=== PATIENT | female | born 1960 | race Caucasian/White ===

== ENCOUNTER 2019-11-13 06:00 | Outpatient (RCR) | payer MEDICARE, OTHER, SELFPAY | END 2019-12-07 23:59 | disposition home or self-care (01) | LOC: APT 06:00 | PROVIDERS: Family Provider Nurse Practitioner; PCP Nurse Practitioner; Referring Provider Psychiatry & Neurology Neurology; Visit Provider Psychiatry & Neurology Neurology | DX: G62.2 Polyneuropathy due to other toxic agents (principal) | CPT/HCPCS: 97110; 97112; 97116; 97163 ==

== ENCOUNTER → 2019-11-20 09:34 | Outpatient (BNVA) | payer MEDICARE, OTHER, SELFPAY | PROVIDERS: Family Provider Nurse Practitioner; PCP Nurse Practitioner; Visit Provider Podiatrist Foot & Ankle Surgery | DX: M79.672 Pain in left foot (principal) | CPT/HCPCS: 73620; 73630 ==

== ENCOUNTER → 2019-11-27 10:11 | Outpatient (BNVA) | payer MEDICARE, OTHER, SELFPAY | PROVIDERS: Family Provider Nurse Practitioner; PCP Nurse Practitioner; Visit Provider Nurse Practitioner | DX: F43.12 Post-traumatic stress disorder, chronic (principal); G47.10 Hypersomnia, unspecified; G47.33 Obstructive sleep apnea (adult) (pediatric) | CPT/HCPCS: 99214 ==

== ENCOUNTER → 2019-12-12 09:53 | Outpatient (BNVA) | payer MEDICARE, OTHER, SELFPAY | PROVIDERS: Family Provider Nurse Practitioner; PCP Nurse Practitioner; Visit Provider Internal Medicine Rheumatology | DX: M19.90 Unspecified osteoarthritis, unspecified site (principal); Z11.59 Encounter for screening for other viral diseases; Z79.899 Other long term (current) drug therapy; M79.7 Fibromyalgia | CPT/HCPCS: 99214 ==

== ENCOUNTER → 2019-12-13 08:13 | Outpatient (BNVA) | payer MEDICARE, OTHER, SELFPAY | PROVIDERS: Family Provider Nurse Practitioner; PCP Nurse Practitioner; Visit Provider Internal Medicine Rheumatology | DX: M19.90 Unspecified osteoarthritis, unspecified site (principal); Z11.59 Encounter for screening for other viral diseases; Z79.899 Other long term (current) drug therapy | CPT/HCPCS: 80076; 82565; 85025; 85651; 86140; 86704; 86803; 87340 ==

== ENCOUNTER 2019-12-17 11:30 | Outpatient (CLI) | payer MEDICARE, OTHER, SELFPAY ==
--- NOTE | 2019-12-17 11:38 | XR_ITS ---
WS: [id number] LEFT FOOT: 3 VIEW(S) TECHNIQUE: PA, oblique and lateral. HISTORY: inflammatory arthritis COMPARISON: 11/20/2019 Diffuse osteopenia. Carlton and screw fixation noted in the distal tibia. 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 Normal tarsal/metatarsal alignment. Mild narrowing of the first metatarsophalangeal joint. No erosions. Mild hammertoe deformities. Degen erative changes in the subtalar joint are probably posttraumatic. Partial fusion at the subtalar join t. XR/XR foot LT min 3V* [id number] IMPRESSION: 1. No erosion at the metatarsal heads. 2. Partial fusion across the subtalar joint.
--- NOTE | 2019-12-17 11:38 | XR_ITS ---
WS: [id number] LEFT HAND: 3 VIEW(S) TECHNIQUE: PA, oblique and lateral. HISTORY: inflammatory arthritis COMPARISON: None available. No acute fracture or dislocation. No soft tissue or bone abnormality. No metacarpal head erosions. No ulnar styloid erosion. No periarticular osteopenia. XR/XR hand LT min 3V* [id number] IMPRESSION: No evidence for inflammatory arthritis.
--- NOTE | 2019-12-17 11:38 | XR_ITS ---
WS: [id number] CHEST 2 VIEWS HISTORY: inflammatory arthritis COMPARISON: 09/21/2016 Lungs: Clear with no abnormality. No pleural effusion or pneumothorax. Cardiac size: Normal. Mediastinum/Aorta: Mild atherosclerosis aorta. Bones: Mild increase in thoracic kyphosis. Mild multilevel spondylitic changes. XR/XR chest 2V* [id number] IMPRESSION: 1. No acute cardiopulmonary disease. 2. Mild atherosclerosis aorta.
--- NOTE | 2019-12-17 11:38 | XR_ITS ---
WS: [id number] RIGHT HAND: 3 VIEW(S) TECHNIQUE: PA, oblique and lateral. HISTORY: inflammatory arthritis COMPARISON: None available. No acute fracture or dislocation. No soft tissue or bone abnormality. No metacarpal head erosions or ulnar styloid erosion. Lucency in the triquetrum may be a small erosio n or bone cyst. XR/XR hand RT min 3V* [id number] IMPRESSION: 1. Indeterminate for small erosion or cyst in the triquetrum. 2. Otherwise negative.
--- NOTE | 2019-12-17 11:38 | XR_ITS ---
WS: [id number] RIGHT FOOT: 3 VIEW(S) TECHNIQUE: PA, oblique and lateral. HISTORY: inflammatory arthritis COMPARISON: 11/20/2019 No acute fracture or dislocation. Mild narrowing of the first metatarsophalangeal joint. No definite erosion. There is a very tiny luce ncy along the lateral first metatarsal head. At this time cannot confirm erosion. No soft tissue abnormality or bone destruction. XR/XR foot RT min 3V* [id number] IMPRESSION: 1. Mild osteoarthritis at the first metatarsophalangeal joint. 2. Indeterminate for tiny erosion along the lateral, first metatarsal head.
== END 2019-12-17 11:31 | disposition home or self-care (01) ==
LOC: RADWPI 11:36
PROVIDERS: Family Provider Nurse Practitioner; PCP Nurse Practitioner; Visit Provider Internal Medicine Rheumatology
DX: M85.841 Other specified disorders of bone density and structure, right hand (principal); M19.071 Primary osteoarthritis, right ankle and foot; M85.871 Other specified disorders of bone density and structure, right ankle and foot; M24.675 Ankylosis, left foot; I70.0 Atherosclerosis of aorta
CPT/HCPCS: 71046; 73130; 73630

== ENCOUNTER 2020-01-04 13:40 | Outpatient (CLI) | payer MEDICARE, OTHER, SELFPAY ==
[2020-01-04 15:08] LABS: Hepatitis C Virus Antibody Reactive (Nonreactive)
== END 2020-01-04 13:41 | disposition home or self-care (01) ==
LOC: LAB 13:48
PROVIDERS: Family Provider Nurse Practitioner; PCP Nurse Practitioner; Visit Provider Internal Medicine Rheumatology
DX: L40.50 Arthropathic psoriasis, unspecified (principal); Z79.899 Other long term (current) drug therapy
CPT/HCPCS: 86803

== ENCOUNTER 2020-01-10 11:31 | Outpatient (CLI) | payer MEDICARE, OTHER, SELFPAY ==
[2020-01-10 12:11] LABS: Basophils % 0.5 %; Eosinophils # 0.2 10^3/uL (0.0-0.8); Eosinophils % 2.7 %; Hematocrit 39.3 % (37.0-47.0); Hemoglobin 12.4 g/dL (11.5-15.3); Lymphocytes # 1.3 10^3/uL (0.8-4.8); Lymphocytes % 23.3 %; Mean Corpuscular HGB Conc 31.6 g/dL (30.0-36.0); Mean Corpuscular Volume 91.8 fL (81-99); Mean Platelet Volume 10.2 fL (7.4-10.4); Monocytes # 0.6 10^3/uL (0.2-0.9); Monocytes % 9.9 %; Neutrophils # 3.5 10^3/uL (1.8-7.7); Neutrophils % 63.4 %; Nucleated Red Blood Cells % 0 %; Platelet Count 240 10^3/cmm (130-400); Red Blood Count 4.28 10^6/uL (4.1-5.3); Red Cell Distribution Width 12.8 % (12.1-15.1); White Blood Count 5.5 10^3/uL (4.0-10.0)
[2020-01-10 12:39] LABS: Alanine Aminotransferase 13 U/L (0-33); Albumin Level 4.4 g/dL (3.5-5.2); Alkaline Phosphatase 66 IU/L (35-105); Anion Gap 15.2 (5-19); Aspartate Amino Transferase 30 U/L (0-32); Blood Urea Nitrogen 18 mg/dL (6-20); Calcium 10.2 mg/dL (8.5-10.5); Carbon Dioxide 30 mmol/L (22-29); Chloride 99 mmol/L (98-107); Chol HDL Ratio 1.69 mg/dL (0.0-4.40); Cholesterol 145 mg/dL (0-200); Globulin 3.9 g/dL (1.3-4.6); Glomerular Filtration Rate 73.9 mL/min (90-130); Glucose 115 mg/dL (65-115); HDL Cholesterol 86 mg/dL (60-100); Iron 72 ug/dL (37-145); LDL Cholesterol Calculated 43 mg/dL (50-129); Magnesium 2.4 mg/dL (1.7-2.3); Percent Saturation 22.9 % (20-50); Phosphorus 4.1 mg/dL (2.5-4.5); Potassium 4.2 mmol/L (3.5-5.1); Sodium 140 mmol/L (136-145); Thyroid Stimulating Hormone 1.56 uIU/mL (0.27-4.20); Total Bilirubin 0.5 mg/dL (0.15-1.2); Total Iron Binding Capacity 314 mcg/dl; Total Protein 8.3 g/dL (6.6-8.7); Triglycerides 81 mg/dL (0-150); Unsaturated Iron Binding 242 ug/dL (112-347); Vitamin B12 1469 pg/mL (232-1245)
[2020-01-10 12:41] LABS: Calcium 10.1 mg/dL (8.5-10.5); Parathyroid Hormone 52.6 pg/mL (15-65)
[2020-01-10 12:49] LABS: Folate Level 18.7 ng/mL (4.8-37.3)
[2020-01-10 12:59] LABS: Estmated Average Glucose 111; Hemoglobin A1C 5.5 % (4.0-6.0)
== END 2020-01-10 11:32 | disposition home or self-care (01) ==
LOC: LAB 11:40
PROVIDERS: Family Provider Nurse Practitioner; PCP Nurse Practitioner; Visit Provider Surgery
DX: E66.9 Obesity, unspecified (principal); I10 Essential (primary) hypertension; E11.9 Type 2 diabetes mellitus without complications; K21.9 Gastro-esophageal reflux disease without esophagitis; L40.50 Arthropathic psoriasis, unspecified; Z79.899 Other long term (current) drug therapy; Z79.82 Long term (current) use of aspirin
CPT/HCPCS: 80053; 80061; 82310; 82607; 82746; 83036; 83540; 83550; 83735; 83970; 84100; 84443; 85025

== ENCOUNTER 2020-01-17 11:24 | Outpatient (CLI) | payer MEDICARE, OTHER, SELFPAY ==
[2020-01-17 12:24] LABS: Iron 124 ug/dL (37-145)
[2020-01-22 11:01] LABS: Vitamin B1(Thiamin) Plas/Ser 57 nmol/L (8-30)
[2020-01-22 20:06] LABS: Zinc Level, Serum or Plasma 76 mcg/dL (60-130)
[2020-01-23 09:41] LABS: Vit D 1,25 (Oh)2, Total 69 pg/mL (18-72); Vit D2 1,25 (Oh)2 <8 pg/mL; Vit D3 1,25 (Oh)2 69 pg/mL
== END 2020-01-17 11:25 | disposition home or self-care (01) ==
LOC: LAB 11:29
PROVIDERS: Family Provider Nurse Practitioner; PCP Nurse Practitioner; Visit Provider Surgery
DX: E66.9 Obesity, unspecified (principal); E55.9 Vitamin D deficiency, unspecified; E11.9 Type 2 diabetes mellitus without complications
CPT/HCPCS: 36415; 82652; 83540; 84425; 84630

== ENCOUNTER → 2020-01-22 09:35 | Outpatient (BNVA) | payer MEDICARE, OTHER, SELFPAY | PROVIDERS: Family Provider Nurse Practitioner; PCP Nurse Practitioner; Visit Provider Nurse Practitioner | DX: F43.12 Post-traumatic stress disorder, chronic (principal); G47.10 Hypersomnia, unspecified | CPT/HCPCS: 99214 ==

== ENCOUNTER → 2020-02-05 10:28 | Outpatient (BNVA) | payer MEDICARE, OTHER, SELFPAY | PROVIDERS: Family Provider Nurse Practitioner; PCP Nurse Practitioner; Visit Provider Nurse Practitioner | DX: E11.9 Type 2 diabetes mellitus without complications (principal); I10 Essential (primary) hypertension; E78.2 Mixed hyperlipidemia | CPT/HCPCS: 81000; 82044; 83036 ==

== ENCOUNTER 2020-03-20 10:02 | Outpatient (CLI) | payer MEDICARE, OTHER, SELFPAY ==
--- NOTE | 2020-03-20 09:30 | US_ITS ---
WS: [id number] RIGHT UPPER QUADRANT ULTRASOUND HISTORY: Hepatitis C COMPARISON: 03/10/2015 Liver: 17.7 cm in length. Liver is normal size. The surface of the liver is very slightly irregular a nd nodular. No mass or bile duct dilatation. Gallbladder: Prior cholecystectomy. CBD: 0.4 cm Pancreas: Normal size and echogenicity. Right kidney: 9.9 cm in length. Normal echogenicity with no mass or hydronephrosis. Aorta and IVC: Unremarkable. No ascites. US/US liver [id number] IMPRESSION: 1. Prior cholecystectomy. 2. Minimal surface changes involving the liver of cirrhosis.
[2020-03-21 15:11] LABS: HEP C RNA Viral Load Quant <1.18 NOT DETECTED Log IU/mL (NOT DETECTED); HEP C RNA Viral Load Quant <15 NOT DETECTED IU/mL (NOT DETECTED)
== END 2020-03-20 10:03 | disposition home or self-care (01) ==
LOC: RAD 10:03
PROVIDERS: PCP Nurse Practitioner; Visit Provider Nurse Practitioner Family
DX: R76.8 Other specified abnormal immunological findings in serum (principal); B19.20 Unspecified viral hepatitis C without hepatic coma
CPT/HCPCS: 76705; 87522

== ENCOUNTER → 2020-03-25 07:48 | Outpatient (BNVA) | payer MEDICARE, OTHER, SELFPAY | PROVIDERS: PCP Nurse Practitioner; Visit Provider Nurse Practitioner | DX: F43.12 Post-traumatic stress disorder, chronic (principal) | CPT/HCPCS: 99214 ==

== ENCOUNTER → 2020-05-06 07:18 | Outpatient (BNVA) | payer MEDICARE, OTHER, SELFPAY | PROVIDERS: PCP Nurse Practitioner; Visit Provider Nurse Practitioner | DX: F43.12 Post-traumatic stress disorder, chronic (principal); F41.1 Generalized anxiety disorder | CPT/HCPCS: 99213 ==

== ENCOUNTER → 2020-06-30 12:43 | Outpatient (BNVA) | payer MEDICARE, OTHER, SELFPAY | PROVIDERS: PCP Nurse Practitioner; Visit Provider Internal Medicine Rheumatology | DX: L40.50 Arthropathic psoriasis, unspecified (principal); Z79.899 Other long term (current) drug therapy; M79.7 Fibromyalgia; M19.041 Primary osteoarthritis, right hand; M19.042 Primary osteoarthritis, left hand; R76.8 Other specified abnormal immunological findings in serum | CPT/HCPCS: 36415; 80076; 82565; 85025; 85651; 86140; 99214 ==

== ENCOUNTER → 2020-07-07 08:01 | Outpatient (BNVA) | payer MEDICARE, OTHER, SELFPAY | PROVIDERS: PCP Nurse Practitioner; Visit Provider Nurse Practitioner | DX: F43.12 Post-traumatic stress disorder, chronic (principal) | CPT/HCPCS: 99213 ==

== ENCOUNTER → 2020-07-11 08:14 | Outpatient (BNVA) | payer MEDICARE, OTHER, SELFPAY | PROVIDERS: PCP Nurse Practitioner; Visit Provider Nurse Practitioner | DX: E11.9 Type 2 diabetes mellitus without complications (principal); E55.9 Vitamin D deficiency, unspecified; E78.2 Mixed hyperlipidemia; I10 Essential (primary) hypertension; Z79.899 Other long term (current) drug therapy | CPT/HCPCS: 80053; 80061; 81003; 82043; 82306; 83036; 87077; 87086; 87184; 87186 ==

== ENCOUNTER 2020-08-27 06:00 | Outpatient (RCR) | payer MEDICARE, OTHER, SELFPAY | END 2020-09-06 23:59 | disposition home or self-care (01) | LOC: APT 06:00 | PROVIDERS: PCP Nurse Practitioner; Referring Provider Internal Medicine Cardiovascular Disease; Visit Provider Internal Medicine Cardiovascular Disease | DX: F41.9 Anxiety disorder, unspecified (principal); F43.12 Post-traumatic stress disorder, chronic; M50.30 Other cervical disc degeneration, unspecified cervical region; Z98.1 Arthrodesis status; R29.6 Repeated falls | CPT/HCPCS: 97110; 97163; 99213 ==

== ENCOUNTER 2020-09-07 06:00 | Outpatient (RCR) | payer MEDICARE, OTHER, SELFPAY | END 2020-10-06 23:59 | disposition home or self-care (01) | LOC: APT 06:00 | PROVIDERS: PCP Nurse Practitioner; Referring Provider Internal Medicine Cardiovascular Disease; Visit Provider Internal Medicine Cardiovascular Disease | DX: M50.30 Other cervical disc degeneration, unspecified cervical region (principal); Z98.1 Arthrodesis status; R29.6 Repeated falls | CPT/HCPCS: 97110; 97112; 97163 ==

== ENCOUNTER 2020-10-07 06:00 | Outpatient (RCR) | payer MEDICARE, OTHER, SELFPAY | END 2020-11-06 23:59 | disposition home or self-care (01) | LOC: APT 06:00 | PROVIDERS: PCP Nurse Practitioner; Referring Provider Internal Medicine Cardiovascular Disease; Visit Provider Internal Medicine Cardiovascular Disease | DX: M50.30 Other cervical disc degeneration, unspecified cervical region (principal); Z98.1 Arthrodesis status; R29.6 Repeated falls | CPT/HCPCS: 97110; 97112; 97530 ==

== ENCOUNTER → 2020-10-09 08:31 | Outpatient (BNVA) | payer MEDICARE, OTHER, SELFPAY | PROVIDERS: PCP Nurse Practitioner; Visit Provider Nurse Practitioner | DX: F41.9 Anxiety disorder, unspecified (principal); F43.12 Post-traumatic stress disorder, chronic | CPT/HCPCS: 99213 ==

== ENCOUNTER → 2020-10-14 09:50 | Outpatient (BNVA) | payer MEDICARE, OTHER, SELFPAY | PROVIDERS: PCP Nurse Practitioner; Visit Provider Nurse Practitioner | DX: E11.9 Type 2 diabetes mellitus without complications (principal); E55.9 Vitamin D deficiency, unspecified; I10 Essential (primary) hypertension | CPT/HCPCS: 80053; 80061; 82306; 83036; 85025 ==

== ENCOUNTER → 2020-10-20 10:31 | Outpatient (BNVA) | payer MEDICARE, OTHER, SELFPAY | PROVIDERS: PCP Nurse Practitioner; Visit Provider Internal Medicine Rheumatology | DX: L40.50 Arthropathic psoriasis, unspecified (principal); M19.041 Primary osteoarthritis, right hand; M19.042 Primary osteoarthritis, left hand; Z79.899 Other long term (current) drug therapy; M79.7 Fibromyalgia; E11.42 Type 2 diabetes mellitus with diabetic polyneuropathy; F43.12 Post-traumatic stress disorder, chronic; F41.9 Anxiety disorder, unspecified; Z85.048 Personal history of other malignant neoplasm of rectum, rectosigmoid junction, and anus; Z87.891 Personal history of nicotine dependence | CPT/HCPCS: 99214 ==

== ENCOUNTER 2020-11-07 06:00 | Outpatient (RCR) | payer MEDICARE, OTHER, SELFPAY | END 2020-12-07 23:59 | disposition home or self-care (01) | LOC: APT 06:00 | PROVIDERS: PCP Nurse Practitioner; Referring Provider Internal Medicine Cardiovascular Disease; Visit Provider Internal Medicine Cardiovascular Disease | DX: M50.30 Other cervical disc degeneration, unspecified cervical region (principal); Z98.1 Arthrodesis status; R29.6 Repeated falls | CPT/HCPCS: 97110 ==

== ENCOUNTER → 2020-12-01 09:40 | Outpatient (BNVA) | payer MEDICARE, OTHER, SELFPAY | PROVIDERS: PCP Nurse Practitioner; Visit Provider Nurse Practitioner | DX: E11.9 Type 2 diabetes mellitus without complications (principal) | CPT/HCPCS: 81003; 87086 ==

== ENCOUNTER → 2020-12-17 07:42 | Outpatient (BNVA) | payer MEDICARE, OTHER, SELFPAY | PROVIDERS: PCP Nurse Practitioner; Visit Provider Nurse Practitioner | DX: F43.12 Post-traumatic stress disorder, chronic (principal) | CPT/HCPCS: 99214 ==

== ENCOUNTER 2021-01-13 10:56 | Outpatient (CLI) | payer MEDICARE, OTHER, SELFPAY ==
--- NOTE | 2021-01-13 11:00 | MM_ITS ---
WS: [id number] BILATERAL DIGITAL SCREENING MAMMOGRAPHY WITH CAD CLINICAL INFORMATION: Z12.39 - Encounter for other screening for malignant neoplasm of breast HISTORY: Screening mammogram. No current complaints. COMPARISON: 015 TECHNIQUE: Bilateral CC and MLO views. FINDINGS: The breasts are composed of heterogeneous fibroglandular density tissue, which can limit the detectio n of small underlying mass lesions. No suspicious mass, asymmetry, calcifications, or architectural d istortion. No evidence of malignancy. A few incidental punctate calcifications. Vascular calcificatio ns. MM/[place] [id number] IMPRESSION: BI-RADS: 2-Benign FOLLOW UP: 1 Year Follow-up Recommend return to annual screening mammography.
== END 2021-01-13 10:57 | disposition home or self-care (01) ==
LOC: RADSHAW 10:59
PROVIDERS: PCP Nurse Practitioner; Visit Provider Nurse Practitioner
DX: Z12.31 Encounter for screening mammogram for malignant neoplasm of breast (principal)
CPT/HCPCS: 77067

== ENCOUNTER → 2021-01-22 16:24 | Outpatient (BNVA) | payer MEDICARE, OTHER, SELFPAY | PROVIDERS: PCP Nurse Practitioner; Visit Provider Nurse Practitioner Family | DX: R39.11 Hesitancy of micturition (principal) | CPT/HCPCS: 81003; 87086 ==

== ENCOUNTER → 2021-02-09 15:14 | Outpatient (BNVA) | payer MEDICARE, OTHER, SELFPAY | PROVIDERS: PCP Nurse Practitioner; Visit Provider Nurse Practitioner | DX: E11.9 Type 2 diabetes mellitus without complications (principal) | CPT/HCPCS: 81000 ==

== ENCOUNTER → 2021-02-17 15:18 | Outpatient (BNVA) | payer MEDICARE, OTHER, SELFPAY | PROVIDERS: PCP Nurse Practitioner; Visit Provider Urology | DX: N39.9 Disorder of urinary system, unspecified (principal); R39.11 Hesitancy of micturition; N39.46 Mixed incontinence | CPT/HCPCS: 81003 ==

== ENCOUNTER → 2021-02-26 09:32 | Outpatient (BNVA) | payer MEDICARE, OTHER, SELFPAY | PROVIDERS: PCP Nurse Practitioner; Visit Provider Nurse Practitioner | DX: F41.9 Anxiety disorder, unspecified (principal); F43.12 Post-traumatic stress disorder, chronic; G47.10 Hypersomnia, unspecified | CPT/HCPCS: 99214 ==

== ENCOUNTER 2021-02-26 11:56 | Outpatient (CLI) | payer MEDICARE, OTHER, SELFPAY ==
[2021-02-26 13:04] LABS: Basophils % 0.7 %; Eosinophils # 0.1 10^3/uL (0.0-0.8); Eosinophils % 2.2 %; Hemoglobin 13.2 g/dL (11.5-15.3); Lymphocytes # 1.4 10^3/uL (0.8-4.8); Lymphocytes % 25.3 %; Mean Corpuscular HGB Conc 31.4 g/dL (30.0-36.0); Mean Corpuscular Hemoglobin 29.2 pg (28.0-34.0); Mean Corpuscular Volume 92.9 fL (81-99); Mean Platelet Volume 10.3 fL (7.4-10.4); Monocytes # 0.5 10^3/uL (0.2-0.9); Monocytes % 8.7 %; Neutrophils # 3.45 10^3/uL (1.8-7.7); Neutrophils % 62.7 %; Nucleated Red Blood Cells % 0 %; Platelet Count 259 10^3/cmm (130-400); Red Blood Count 4.52 10^6/uL (4.1-5.3); White Blood Count 5.5 10^3/uL (4.0-10.0)
[2021-02-26 13:23] LABS: INR 0.99 (0.8-1.2)
[2021-02-26 13:32] LABS: Calcium 9.6 mg/dL (8.5-10.5); Parathyroid Hormone 44.7 pg/mL (15-65)
[2021-02-26 13:45] LABS: Alanine Aminotransferase 11 U/L (0-33); Albumin Level 4.8 g/dL (3.5-5.2); Alkaline Phosphatase 79 IU/L (35-105); Aspartate Amino Transferase 23 U/L (0-32); Blood Urea Nitrogen 9 mg/dL (6-20); C Reactive Protein 7.4 mg/L (0.0-4.9); Calcium 9.5 mg/dL (8.5-10.5); Carbon Dioxide 31 mmol/L (22-29); Chloride 104 mmol/L (98-107); Chol HDL Ratio 1.93 mg/dL (0.0-4.40); Cholesterol 191 mg/dL (0-200); Globulin 2.8 g/dL (1.3-4.6); Glomerular Filtration Rate 85.9 mL/min (90-130); Glucose 122 mg/dL (65-115); HDL Cholesterol 99 mg/dL (60-100); Iron 72 ug/dL (37-145); LDL Cholesterol Calculated 59 mg/dL (50-129); Magnesium 2.2 mg/dL (1.7-2.3); Osmolality Calculated 296 mOsm/kg (285-295); Phosphorus 3.7 mg/dL (2.5-4.5); Sodium 143 mmol/L (136-145); Total Bilirubin 0.4 mg/dL (0.15-1.2); Total Iron Binding Capacity 326 mcg/dl; Total Protein 7.6 g/dL (6.6-8.7); Triglycerides 167 mg/dL (0-150); Unsaturated Iron Binding 254 ug/dL (112-347)
[2021-02-26 13:46] LABS: Erythrocyte Sedimentation Rate 29 mm/hr (0-15)
[2021-02-26 13:54] LABS: Vitamin B12 > 2000 pg/mL (232-1245)
[2021-02-26 14:23] LABS: Folate Level > 20.0 ng/mL (4.8-37.3)
[2021-03-02 12:53] LABS: Vitamin B1(Thiamin) Plas/Ser 114 nmol/L (8-30)
[2021-03-03 21:13] LABS: Zinc Level, Serum or Plasma 84 mcg/dL (60-130)
[2021-03-09 16:02] LABS: Vit D 1,25 (Oh)2, Total 83 pg/mL (18-72); Vit D2 1,25 (Oh)2 <8 pg/mL; Vit D3 1,25 (Oh)2 83 pg/mL
== END 2021-02-26 11:57 | disposition home or self-care (01) ==
LOC: LAB 12:09
PROVIDERS: Internal Medicine Rheumatology; PCP Nurse Practitioner; Visit Provider Surgery
DX: E66.9 Obesity, unspecified (principal); Z79.899 Other long term (current) drug therapy; E66.01 Morbid (severe) obesity due to excess calories; K21.9 Gastro-esophageal reflux disease without esophagitis; Z98.84 Bariatric surgery status; E88.81 Metabolic syndrome and other insulin resistance
CPT/HCPCS: 36415; 80053; 80061; 82248; 82310; 82607; 82652; 82746; 83540; 83550; 83735; 83970; 84100; 84425; 84443; 84630; 85025; 85610; 85651; 86140

== ENCOUNTER → 2021-03-18 11:15 | Outpatient (BNVA) | payer MEDICARE, OTHER, SELFPAY | PROVIDERS: PCP Nurse Practitioner; Visit Provider Urology | DX: N39.46 Mixed incontinence (principal); R39.11 Hesitancy of micturition; R30.0 Dysuria | CPT/HCPCS: 81003; 87077; 87086; 87184 ==

== ENCOUNTER → 2021-04-15 11:20 | Outpatient (BNVA) | payer MEDICARE, OTHER, SELFPAY | PROVIDERS: PCP Nurse Practitioner; Visit Provider Urology | DX: R30.0 Dysuria (principal); R33.9 Retention of urine, unspecified; N39.46 Mixed incontinence; R39.11 Hesitancy of micturition | CPT/HCPCS: 81003 ==

== ENCOUNTER → 2021-05-13 10:37 | Outpatient (BNVA) | payer MEDICARE, OTHER, SELFPAY | PROVIDERS: PCP Nurse Practitioner; Visit Provider Internal Medicine Rheumatology | DX: L40.50 Arthropathic psoriasis, unspecified (principal); M19.041 Primary osteoarthritis, right hand; M19.042 Primary osteoarthritis, left hand; Z71.89 Other specified counseling; Z79.899 Other long term (current) drug therapy; R76.8 Other specified abnormal immunological findings in serum; E11.9 Type 2 diabetes mellitus without complications; I10 Essential (primary) hypertension; E55.9 Vitamin D deficiency, unspecified | CPT/HCPCS: 80076; 82565; 85025; 86140 ==

== ENCOUNTER → 2021-05-14 13:58 | Outpatient (BNVA) | payer MEDICARE, OTHER, SELFPAY | PROVIDERS: PCP Nurse Practitioner; Visit Provider Nurse Practitioner | DX: F41.9 Anxiety disorder, unspecified (principal); F43.12 Post-traumatic stress disorder, chronic; G47.10 Hypersomnia, unspecified | CPT/HCPCS: 99214 ==

== ENCOUNTER → 2021-05-20 14:58 | Outpatient (BNVA) | payer MEDICARE, OTHER, SELFPAY | PROVIDERS: PCP Nurse Practitioner; Visit Provider Internal Medicine Rheumatology | DX: L40.50 Arthropathic psoriasis, unspecified (principal); M79.7 Fibromyalgia; Z79.899 Other long term (current) drug therapy; E11.42 Type 2 diabetes mellitus with diabetic polyneuropathy; K75.81 Nonalcoholic steatohepatitis (NASH); M15.9 Polyosteoarthritis, unspecified; K21.9 Gastro-esophageal reflux disease without esophagitis; Z85.048 Personal history of other malignant neoplasm of rectum, rectosigmoid junction, and anus; Z92.3 Personal history of irradiation; Z92.21 Personal history of antineoplastic chemotherapy; Z87.891 Personal history of nicotine dependence | CPT/HCPCS: 99214 ==

== ENCOUNTER → 2021-06-11 15:59 | Outpatient (BNVA) | payer MEDICARE, OTHER, SELFPAY | PROVIDERS: PCP Nurse Practitioner; Visit Provider Nurse Practitioner Family | DX: R33.9 Retention of urine, unspecified (principal); N39.0 Urinary tract infection, site not specified | CPT/HCPCS: 81003; 87077; 87086; 87184 ==

== ENCOUNTER → 2021-07-10 09:35 | Outpatient (BNVA) | payer MEDICARE, OTHER, SELFPAY | PROVIDERS: PCP Nurse Practitioner; Visit Provider Nurse Practitioner | DX: F43.12 Post-traumatic stress disorder, chronic (principal); G47.10 Hypersomnia, unspecified | CPT/HCPCS: 99214 ==

== ENCOUNTER → 2021-08-11 09:18 | Outpatient (BNVA) | payer MEDICARE, OTHER, SELFPAY | PROVIDERS: PCP Nurse Practitioner; Visit Provider Internal Medicine Rheumatology | DX: L40.50 Arthropathic psoriasis, unspecified (principal); M79.7 Fibromyalgia; Z71.89 Other specified counseling; Z79.899 Other long term (current) drug therapy | CPT/HCPCS: 80076; 82565; 85025; 86140 ==

== ENCOUNTER → 2021-08-12 15:10 | Outpatient (BNVA) | payer MEDICARE, OTHER, SELFPAY | PROVIDERS: PCP Nurse Practitioner; Visit Provider Internal Medicine Rheumatology | DX: L40.50 Arthropathic psoriasis, unspecified (principal); Z79.899 Other long term (current) drug therapy; M19.041 Primary osteoarthritis, right hand; M19.042 Primary osteoarthritis, left hand; M79.7 Fibromyalgia; K21.9 Gastro-esophageal reflux disease without esophagitis; K22.70 Barrett's esophagus without dysplasia; Z71.89 Other specified counseling; Z87.891 Personal history of nicotine dependence | CPT/HCPCS: 99214 ==

== ENCOUNTER → 2021-08-25 09:23 | Outpatient (BNVA) | payer MEDICARE, OTHER, SELFPAY | PROVIDERS: PCP Nurse Practitioner; Visit Provider Nurse Practitioner | DX: E11.9 Type 2 diabetes mellitus without complications (principal) | CPT/HCPCS: 80053; 80061; 82043 ==

== ENCOUNTER → 2021-10-07 10:05 | Outpatient (BNVA) | payer MEDICARE, OTHER, SELFPAY | PROVIDERS: PCP Nurse Practitioner; Visit Provider Nurse Practitioner | DX: F43.12 Post-traumatic stress disorder, chronic (principal); F41.9 Anxiety disorder, unspecified; G47.10 Hypersomnia, unspecified | CPT/HCPCS: 99214 ==

== ENCOUNTER → 2021-10-15 15:33 | Outpatient (BNVA) | payer MEDICARE, OTHER, SELFPAY | PROVIDERS: PCP Nurse Practitioner; Visit Provider Nurse Practitioner Family | DX: S61.259A Open bite of unspecified finger without damage to nail, initial encounter (principal); L08.9 Local infection of the skin and subcutaneous tissue, unspecified; W54.0XXA Bitten by dog, initial encounter | CPT/HCPCS: 73130; 81003 ==

== ENCOUNTER → 2021-11-03 00:01 | Outpatient (BNVA) | payer MEDICARE, OTHER, SELFPAY | PROVIDERS: PCP Nurse Practitioner; Visit Provider Internal Medicine | DX: K21.9 Gastro-esophageal reflux disease without esophagitis (principal) | CPT/HCPCS: 87635 ==

== ENCOUNTER 2021-11-09 06:26 | Day surgery (SDC) | payer MEDICARE, OTHER, SELFPAY ==
[2021-11-03 10:24] VITALS: BMI 30.9
[2021-11-09 06:41] VITALS: BP 124/74; PULSE 72; RESP 18; TEMP 36.8; O2SAT 98
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
[2021-11-09] MEDS: sodium chloride 0.9% 1,000 ML 30 ML IV (06:58)
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
[2021-11-09 07:48] VITALS: BP 99/63; PULSE 73; RESP 16; TEMP 36.3; O2SAT 99
[2021-11-09 08:05] VITALS: BP 114/79; PULSE 77; RESP 18; O2SAT 96
--- NOTE | 2021-11-09 11:09 | ANE.PACU2 ---
Inpatient post-anesthesia follow up: Airway intact: Yes Vital signs: Temperature 97.4 F Pulse Rate 77 Respiratory Rate 18 Blood Pressure 114/79 Pulse Oximetry 96 Oxygen Delivery Me thod Room Air Oxygen Flow Rate 3 Fraction of Inspir ed Oxygen Hydration adequate: No Nausea and vomiting: No Pain level: 1 Mental status: Baseline Additional Comments: EMR review
== END 2021-11-09 08:25 | disposition home or self-care (01) ==
PROVIDERS: PCP Nurse Practitioner; Visit Provider Internal Medicine
PROC: 0DJD8ZZ Inspection of Lower Intestinal Tract, Via Natural or Artificial Opening Endoscopic (ICD-10-PCS; CPT 45378; principal; 2021-11-09 07:00)
DX: Z12.11 Encounter for screening for malignant neoplasm of colon (principal); Z85.048 Personal history of other malignant neoplasm of rectum, rectosigmoid junction, and anus; K57.30 Diverticulosis of large intestine without perforation or abscess without bleeding; F41.9 Anxiety disorder, unspecified; K21.9 Gastro-esophageal reflux disease without esophagitis; I10 Essential (primary) hypertension; M79.7 Fibromyalgia; M15.9 Polyosteoarthritis, unspecified; E11.9 Type 2 diabetes mellitus without complications
CPT/HCPCS: 45378; 96360; J2704; J7030

== ENCOUNTER → 2021-12-15 13:21 | Outpatient (BNVA) | payer MEDICARE, OTHER, SELFPAY | PROVIDERS: PCP Nurse Practitioner; Visit Provider Internal Medicine Rheumatology | DX: L40.50 Arthropathic psoriasis, unspecified (principal); M19.041 Primary osteoarthritis, right hand; M19.042 Primary osteoarthritis, left hand; E11.42 Type 2 diabetes mellitus with diabetic polyneuropathy; K31.84 Gastroparesis; Z79.899 Other long term (current) drug therapy; K21.9 Gastro-esophageal reflux disease without esophagitis; M79.7 Fibromyalgia; Z92.21 Personal history of antineoplastic chemotherapy; Z85.048 Personal history of other malignant neoplasm of rectum, rectosigmoid junction, and anus; Z98.84 Bariatric surgery status; Z71.89 Other specified counseling | CPT/HCPCS: 99214 ==

== ENCOUNTER → 2021-12-21 08:59 | Outpatient (BNVA) | payer MEDICARE, OTHER, SELFPAY | PROVIDERS: PCP Nurse Practitioner; Visit Provider Internal Medicine Rheumatology | DX: L40.50 Arthropathic psoriasis, unspecified (principal); Z79.899 Other long term (current) drug therapy; M19.041 Primary osteoarthritis, right hand; M19.042 Primary osteoarthritis, left hand; E11.9 Type 2 diabetes mellitus without complications; E55.9 Vitamin D deficiency, unspecified | CPT/HCPCS: 80048; 80076; 82306; 82565; 83036; 85025; 86140 ==

== ENCOUNTER → 2021-12-30 09:35 | Outpatient (BNVA) | payer MEDICARE, OTHER, SELFPAY | PROVIDERS: PCP Nurse Practitioner; Visit Provider Nurse Practitioner | DX: F43.12 Post-traumatic stress disorder, chronic (principal); G47.10 Hypersomnia, unspecified | CPT/HCPCS: 99214 ==

== ENCOUNTER → 2022-03-24 09:43 | Outpatient (BNVA) | payer MEDICARE, OTHER, SELFPAY | PROVIDERS: PCP Nurse Practitioner; Visit Provider Nurse Practitioner | DX: F43.12 Post-traumatic stress disorder, chronic (principal); G47.10 Hypersomnia, unspecified | CPT/HCPCS: 99214 ==

== ENCOUNTER 2022-04-21 14:58 | Outpatient (CLI) | payer MEDICARE, OTHER, SELFPAY ==
--- NOTE | 2022-04-21 15:00 | USCV_ITS ---
Boogie He Age: 61 Gender: F : 1960 Exam Date: 04/21/2022 15:11 Ordering Phys: Bentley Moss Technologist: BELLA Exam Location: [facility] [place] Indication: RLE PAIN AND SWELLNG HISTORY: Lower extremity swelling. Lower extremity pain. PROCEDURES: Venous duplex imaging was performed in only the right lower extremity. The following venous structures were evaluated: common femoral vein, profunda vein, proximal portion of the greater saphenous vein, superficial femoral vein, and the popliteal vein. In addition, the posterior tibial and peroneal trunk were evaluated. Serial compression, augmentation maneuvers, and spectral Doppler flow evaluation were performed. FINDINGS: Normal 2-D Doppler and augmentation and compressibility throughout the lower extremity venous structures. Additional imaging through the proximal calf veins also reveals no thrombus. Limited evaluation of the greater saphenous vein is patent with no thrombus. CONCLUSIONS No DVT right lower extremity. Dr. Rose Judge DO (Electronically Signed) Final Date: 22 April 2022 07:38 S
== END 2022-04-21 14:59 | disposition home or self-care (01) ==
LOC: RAD 15:02
PROVIDERS: PCP Nurse Practitioner; Visit Provider Nurse Practitioner
DX: M79.661 Pain in right lower leg (principal); M79.89 Other specified soft tissue disorders
CPT/HCPCS: 93971

== ENCOUNTER → 2022-06-28 10:40 | Outpatient (BNVA) | payer MEDICARE, OTHER, SELFPAY | PROVIDERS: PCP Nurse Practitioner; Visit Provider Internal Medicine Rheumatology | DX: L40.50 Arthropathic psoriasis, unspecified (principal); Z79.899 Other long term (current) drug therapy; M19.041 Primary osteoarthritis, right hand; M19.042 Primary osteoarthritis, left hand; M79.7 Fibromyalgia; Z71.89 Other specified counseling; E11.43 Type 2 diabetes mellitus with diabetic autonomic (poly)neuropathy; K31.84 Gastroparesis; K21.9 Gastro-esophageal reflux disease without esophagitis; Z92.3 Personal history of irradiation; Z92.21 Personal history of antineoplastic chemotherapy; Z85.048 Personal history of other malignant neoplasm of rectum, rectosigmoid junction, and anus; K75.81 Nonalcoholic steatohepatitis (NASH) | CPT/HCPCS: 36415; 80076; 82565; 85025; 86140; 99214 ==

== ENCOUNTER 2022-07-08 21:25 | Emergency (ER) | payer MEDICARE, OTHER, SELFPAY ==
[2022-07-08 21:35] VITALS: BP 128/67; PULSE 81; RESP 16; TEMP 36.7; O2SAT 96
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
== END 2022-07-08 22:53 | disposition home or self-care (01) ==
PROVIDERS: Emergency Provider Nurse Practitioner Family; PCP Nurse Practitioner
DX: S01.81XA Laceration without foreign body of other part of head, initial encounter (principal); Z79.899 Other long term (current) drug therapy; I10 Essential (primary) hypertension; E11.9 Type 2 diabetes mellitus without complications; W18.09XA Striking against other object with subsequent fall, initial encounter
CPT/HCPCS: 12011; 99282

== ENCOUNTER 2022-08-11 11:44 | Outpatient (CLI) | payer MEDICARE, OTHER, SELFPAY ==
[2022-08-11 13:12] LABS: Alanine Aminotransferase 8 U/L (0-33); Albumin Level 4.3 g/dL (3.5-5.2); Alkaline Phosphatase 59 U/L (35-105); Aspartate Amino Transferase 17 U/L (0-32); Blood Urea Nitrogen 10 mg/dL (6-20); Calcium 9.4 mg/dL (8.5-10.5); Carbon Dioxide 28 mmol/L (22-29); Chloride 103 mmol/L (98-107); Chol HDL Ratio 1.75 mg/dL (0.0-4.40); Cholesterol 166 mg/dL (0-200); Globulin 2.7 g/dL (1.3-4.6); Glomerular Filtration Rate 102.3 mL/min (90-130); Glucose 123 mg/dL (65-115); HDL Cholesterol 95 mg/dL (60-100); LDL Cholesterol Calculated 56 mg/dL (50-129); Osmolality Calculated 292 mOsm/kg (285-295); Sodium 141 mmol/L (136-145); Total Bilirubin 0.5 mg/dL (0.15-1.2); Triglycerides 74 mg/dL (0-150); VLDL Cholestrol Calculation 15 mg/dL (0-30)
[2022-08-11 13:21] LABS: Estmated Average Glucose 117; Hemoglobin A1C 5.7 % (4.0-6.0)
== END 2022-08-11 11:45 | disposition home or self-care (01) ==
PROVIDERS: PCP Nurse Practitioner; Visit Provider Nurse Practitioner
DX: E11.9 Type 2 diabetes mellitus without complications (principal)
CPT/HCPCS: 36415; 80053; 80061; 83036; 84443

== ENCOUNTER 2022-08-24 10:13 | Emergency (ER) | payer MEDICARE, OTHER, SELFPAY ==
[2022-08-24 10:46] VITALS: BP 145/76; PULSE 93; RESP 15; TEMP 36.7; O2SAT 100; BMI 32.5
--- NOTE | 2022-08-24 10:57 | XRR_ITS ---
PROCEDURE INFORMATION: Exam: XR Thoracic Spine Exam date and time: 08/24/2022 11:20 AM Age: 61 years old Clinical indication: Injury or trauma; Blunt trauma (contusions or hematomas); Injury details: Fall injury. Patient states she fell approximately 3 days ago. She was walking on some gravel and tripped landing on her back and left side. Denies any head trauma or loss of consciousness. Since fall she has been sore especially on her left ribs and mid back region. Any movement of torso worsens pain. ; Additional info: Fall with back pain TECHNIQUE: Imaging protocol: Radiologic exam of the thoracic spine. Views: 3 views. Other technique: AP and lateral views and a swimmer's lateral view of the thoracic spine are submitted. COMPARISON: CR XR chest 2V* [id number] 12/17/2019 11:44 AM FINDINGS: Bones/joints: Degenerative disk disease is present at mid-thoracic spine disk levels. Mild stable chronic T5 vertebral body compression deformity. No acute fracture identified. No malalignment. No destructive bony process identified. Lower cervical spine anterior orthopedic fixation. Soft tissues: Unremarkable. Organs: The gallbladder is likely surgically absent, with metallic clips overlying the gallbladder fossa. XR/XR thoracic spine 3V* [id number] IMPRESSION: 1. Degenerative changes as above. 2. No acute thoracic spinal bony abnormality identified. 3. Prior cholecystectomy.
--- NOTE | 2022-08-24 10:57 | XRR_ITS ---
PROCEDURE INFORMATION: Exam: XR Left Ribs with PA Chest Exam date and time: 08/24/2022 11:20 AM Age: 61 years old Clinical indication: Injury or trauma; Rib area, left side; Blunt trauma; Injury details: Fall injury. Patient states she fell approximately 3 days ago. She was walking on some gravel and tripped landing on her back and left side. Denies any head trauma or loss of consciousness. Since fall she has been sore especially on her left ribs and mid back region. Any movement of torso worsens pain. ; Additional info: Fall with left rib pain TECHNIQUE: Imaging protocol: Radiologic exam of the Left ribs with PA chest. Views: 3 views COMPARISON: CR XR chest 2V* [id number] 12/17/2019 11:44 AM FINDINGS: Lungs: The lungs are clear bilaterally. The pulmonary vasculature is normal. Pleural spaces: No pleural effusion. No pneumothorax. Heart/Mediastinum: The heart is normal in size and contour. Vasculature: Mild aortic arch atherosclerotic calcification without ectasia. Bones/joints: Lower cervical spinal anterior fixation hardware. Right lateral vertebral body marginal osteophytes are noted at lower thoracic spinal levels. Organs: The gallbladder is likely surgically absent, with metallic clips overlying the gallbladder fossa. XR/XR ribs LT mn 3V w CXR1V [id number] IMPRESSION: 1. No acute left chest wall injury identified. 2. No acute cardiopulmonary abnormality identified. 3. Prior cholecystectomy.
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
[2022-08-24] MEDS: orphenadrine 30 mg/mL Inj 2 mL 60 MG IM (11:18)
[2022-08-24] MEDS: ketorolac 60 mg/2 mL INJ IM (11:18)
== END 2022-08-24 12:46 | disposition home or self-care (01) ==
PROVIDERS: Emergency Provider Physician Assistant; PCP Nurse Practitioner
DX: R07.81 Pleurodynia (principal); M54.6 Pain in thoracic spine; Z79.85 Long-term (current) use of injectable non-insulin antidiabetic drugs; W01.0XXA Fall on same level from slipping, tripping and stumbling without subsequent striking against object, initial encounter; I10 Essential (primary) hypertension; E11.9 Type 2 diabetes mellitus without complications
CPT/HCPCS: 71101; 72072; 96372; 99284; J1885; J2360

== ENCOUNTER → 2022-08-25 09:28 | Outpatient (BNVA) | payer MEDICARE, OTHER, SELFPAY | PROVIDERS: PCP Nurse Practitioner; Referring Provider Nurse Practitioner; Visit Provider Nurse Practitioner | DX: R29.6 Repeated falls (principal); R26.89 Other abnormalities of gait and mobility; R25.1 Tremor, unspecified; R41.89 Other symptoms and signs involving cognitive functions and awareness; M48.00 Spinal stenosis, site unspecified; Z98.890 Other specified postprocedural states | CPT/HCPCS: 99204 ==

== ENCOUNTER → 2022-09-21 10:21 | Outpatient (BNVA) | payer MEDICARE, OTHER, SELFPAY | PROVIDERS: PCP Nurse Practitioner; Visit Provider Internal Medicine Rheumatology | DX: C21.0 Malignant neoplasm of anus, unspecified (principal); N31.9 Neuromuscular dysfunction of bladder, unspecified; R33.9 Retention of urine, unspecified; Z79.899 Other long term (current) drug therapy; L40.50 Arthropathic psoriasis, unspecified; M19.041 Primary osteoarthritis, right hand; M19.042 Primary osteoarthritis, left hand; Z71.89 Other specified counseling; M79.7 Fibromyalgia; E11.43 Type 2 diabetes mellitus with diabetic autonomic (poly)neuropathy; K31.84 Gastroparesis; K21.9 Gastro-esophageal reflux disease without esophagitis; Z92.3 Personal history of irradiation; Z92.21 Personal history of antineoplastic chemotherapy; Z85.048 Personal history of other malignant neoplasm of rectum, rectosigmoid junction, and anus; K75.81 Nonalcoholic steatohepatitis (NASH) | CPT/HCPCS: 81003; 87077; 87086; 87186; 99213; 99214 ==

== ENCOUNTER 2022-10-12 08:41 | Outpatient (CLI) | payer MEDICARE, OTHER, SELFPAY ==
--- NOTE | 2022-10-12 08:45 | MR_ITS ---
WS: [id number] MRI HEAD WITHOUT CONTRAST TECHNIQUE: Sagittal T1, T2 axial, T2 axial FLAIR, axial and coronal T1 images, axial susceptibility w eighted imaging, axial diffusion weighted images, and coronal T2 images were obtained. Inability to o btain IV access for contrast. CLINICAL INFORMATION: R26.9 - Unspecified abnormalities of gait and mobility COMPARISON: MRI May 17, 2019 FINDINGS: No evidence of restricted diffusion to suggest acute ischemia. Ventricular system and basal cisterns are patent. Mild small vessel changes. Mild parenchymal volume loss. Small vessel changes appear stab le since 2019. Mild ventriculomegaly unchanged. No obstructing hydrocephalus or transependymal edema. Normal posterior fossa. Normal vascular flow voids at the skull base. No extra-axial fluid collection s. Paranasal sinuses are well aerated. Mastoid air cells are well aerated. No hemosiderin on suscepti norberto weighted images. Normal optic chiasm and pituitary infundibulum. Moderate symmetric atrophy temporal lobes and hippoca mpal formations. Incidental cavum septum pellucidum. MR/MR head wo con* [id number] IMPRESSION: 1. No evidence of restricted diffusion to suggest acute ischemia. 2. Mild small vessel changes with mild parenchymal volume loss unchanged. 3. Mild ventriculomegaly is unchanged since 2019. No progression. No obstructi ve hydrocephalus. 4. Moderate symmetric atrophy of the temporal lobes and hippocampal formations . 5. No hemosiderin on susceptibly weighted images.
--- NOTE | 2022-10-12 09:30 | MR_ITS ---
WS: [id number] MRI CERVICAL SPINE NONCONTRAST TECHNIQUE: Sagittal T1, T2 and STIR imaging. Axial T2, gradient, and fiesta imaging. CLINICAL INFORMATION: R26.89 - Other abnormalities of gait and mobility COMPARISON: MRI 2014 FINDINGS: Straightening of the normal cervical lordosis. Cord signal is normal. No high-grade central canal alla rowing. Postoperative changes ACDF C4-C6 is new from previous. C2-C3: Normal. C3-C4: Mild disc osteophytic ridging. Mild to moderate RIGHT and no significant LEFT foraminal narrow ing. Mild facet arthropathy. Mild central canal stenosis. C4-C5: Postoperative changes ACDF. Mild RIGHT and no significant LEFT foraminal narrowing. Mild facet arthropathy. Mild central canal stenosis. C5-C6: Postoperative changes ACDF. Mild facet arthropathy. Spinal canal and foramen are patent. C6-C7: Mild disc bulging with osteophytic ridging. Slight effacement of ventral thecal sac. Mild LEFT greater than RIGHT bony foraminal narrowing. Mild facet arthropathy. Mild central canal stenosis. C7-T1: Mild LEFT and no significant RIGHT bony foraminal narrowing. Osteophytic ridging. Spinal canal is patent. Visualized brain stem structures: Normal. Prevertebral soft tissues: Normal. MR/MR cervical spin wo con* [id number] IMPRESSION: 1. Straightening of the normal cervical lordosis. Postoperative changes ACDF C 4-C6 is new from 2014. 2. Mild central canal stenosis C3-C4 C4-C5 and C6-C7. 3. Cord signal is normal. 4. Mild to moderate bony foraminal narrowing worse at RIGHT C3-C4, RIGHT C4-C5 , and LEFT C6-C7.
== END 2022-10-12 08:42 | disposition home or self-care (01) ==
LOC: RAD 08:44
PROVIDERS: PCP Nurse Practitioner; Visit Provider Nurse Practitioner
DX: R26.89 Other abnormalities of gait and mobility (principal); R29.6 Repeated falls; R26.9 Unspecified abnormalities of gait and mobility; R29.2 Abnormal reflex
CPT/HCPCS: 70551; 72141

== ENCOUNTER → 2022-11-15 13:53 | Outpatient (BNVA) | payer MEDICARE, OTHER, SELFPAY | PROVIDERS: PCP Nurse Practitioner; Visit Provider Nurse Practitioner | DX: I10 Essential (primary) hypertension (principal); Z79.899 Other long term (current) drug therapy; M19.041 Primary osteoarthritis, right hand; M19.042 Primary osteoarthritis, left hand | CPT/HCPCS: 80076; 82565; 85025; 86140 ==

== ENCOUNTER → 2022-12-28 14:16 | Outpatient (BNVA) | payer MEDICARE, OTHER, SELFPAY | PROVIDERS: PCP Nurse Practitioner; Visit Provider Internal Medicine Rheumatology | DX: L40.50 Arthropathic psoriasis, unspecified (principal); M19.041 Primary osteoarthritis, right hand; M19.042 Primary osteoarthritis, left hand; Z79.899 Other long term (current) drug therapy; Z71.89 Other specified counseling; M79.7 Fibromyalgia; K31.84 Gastroparesis; K21.9 Gastro-esophageal reflux disease without esophagitis; K75.81 Nonalcoholic steatohepatitis (NASH) | CPT/HCPCS: 99214 ==

== ENCOUNTER → 2023-01-31 08:04 | Outpatient (BNVA) | payer MEDICARE, OTHER, SELFPAY | PROVIDERS: PCP Nurse Practitioner; Visit Provider Nurse Practitioner | DX: E78.2 Mixed hyperlipidemia (principal); E55.9 Vitamin D deficiency, unspecified; E11.9 Type 2 diabetes mellitus without complications; I10 Essential (primary) hypertension; Z79.899 Other long term (current) drug therapy | CPT/HCPCS: 80053; 80061; 82306; 83036; 84443 ==

== ENCOUNTER → 2023-04-07 10:00 | Outpatient (BNVA) | payer MEDICARE, OTHER, SELFPAY | PROVIDERS: PCP Nurse Practitioner; Visit Provider Urology | DX: N39.0 Urinary tract infection, site not specified (principal); R33.9 Retention of urine, unspecified; N31.9 Neuromuscular dysfunction of bladder, unspecified; C21.0 Malignant neoplasm of anus, unspecified | CPT/HCPCS: 51798; 81003; 99213 ==

== ENCOUNTER → 2023-05-17 07:58 | Outpatient (BNVA) | payer MEDICARE, OTHER, SELFPAY | PROVIDERS: PCP Nurse Practitioner; Visit Provider Podiatrist Foot & Ankle Surgery | DX: E11.9 Type 2 diabetes mellitus without complications (principal); G24.01 Drug induced subacute dyskinesia; L60.3 Nail dystrophy; M20.41 Other hammer toe(s) (acquired), right foot; M20.42 Other hammer toe(s) (acquired), left foot; M20.21 Hallux rigidus, right foot; M20.22 Hallux rigidus, left foot | CPT/HCPCS: 99214 ==

== ENCOUNTER → 2023-07-28 10:01 | Outpatient (BNVA) | payer MEDICARE, OTHER, SELFPAY | PROVIDERS: PCP Nurse Practitioner; Visit Provider Psychiatry & Neurology Neurology | DX: R55 Syncope and collapse (principal); R20.2 Paresthesia of skin; R41.3 Other amnesia; E55.9 Vitamin D deficiency, unspecified; R26.9 Unspecified abnormalities of gait and mobility; R29.6 Repeated falls; R25.1 Tremor, unspecified; G62.9 Polyneuropathy, unspecified; E78.2 Mixed hyperlipidemia; Z79.899 Other long term (current) drug therapy; M47.819 Spondylosis without myelopathy or radiculopathy, site unspecified; M54.9 Dorsalgia, unspecified; R40.4 Transient alteration of awareness; R26.0 Ataxic gait; M54.50 Low back pain, unspecified; M43.10 Spondylolisthesis, site unspecified | CPT/HCPCS: 0346U; 36415; 80053; 81241; 82306; 82542; 82746; 83735; 83921; 84155; 84165; 84439; 84443; 84481; 85025; 85210; 85300; 85303; 85306; 85651; 86140; 86146; 86147; 86160; 86162; 86235; 86255; 86334; 86376; 99204 ==

== ENCOUNTER → 2023-08-01 16:19 | Outpatient (BNVA) | payer MEDICARE, OTHER, SELFPAY | PROVIDERS: PCP Nurse Practitioner; Visit Provider Nurse Practitioner | DX: J30.2 Other seasonal allergic rhinitis (principal); K58.0 Irritable bowel syndrome with diarrhea; E11.9 Type 2 diabetes mellitus without complications; E78.2 Mixed hyperlipidemia; M79.7 Fibromyalgia; N31.9 Neuromuscular dysfunction of bladder, unspecified; I10 Essential (primary) hypertension | CPT/HCPCS: 80061; 83036 ==

== ENCOUNTER → 2023-08-17 13:16 | Outpatient (BNVA) | payer MEDICARE, OTHER, SELFPAY | PROVIDERS: PCP Nurse Practitioner; Visit Provider Internal Medicine Rheumatology | DX: L40.50 Arthropathic psoriasis, unspecified (principal); Z79.899 Other long term (current) drug therapy; M19.041 Primary osteoarthritis, right hand; M19.042 Primary osteoarthritis, left hand; Z71.89 Other specified counseling | CPT/HCPCS: 99214 ==

== ENCOUNTER 2023-09-05 09:41 | Outpatient (CLI) | payer MEDICARE, OTHER, SELFPAY ==
--- NOTE | 2023-09-05 09:52 | MM_ITS ---
WS: [id number] SCREENING DIGITAL TOMOSYNTHESIS MAMMOGRAM WITH CAD HISTORY: Z00.00 - Encounter for general adult medical examination ... COMPARISON: 01/13/2021 and 02/19/2015 Bilateral CC and MLO with tomosynthesis views submitted. Synthetic mammography reviewed. Computer aid ed detection analyzed. Breast composition: There are scattered areas of fibroglandular density. No suspicious masses, microc alcifications or architectural distortion. IMPRESSION: MM/[place] [id number] BI-RADS: 1-Negative FOLLOW UP: 1 Year Follow-up
== END 2023-09-05 09:42 | disposition home or self-care (01) ==
LOC: RAD 09:41
PROVIDERS: PCP Nurse Practitioner; Visit Provider Family Medicine
DX: Z12.31 Encounter for screening mammogram for malignant neoplasm of breast (principal)
CPT/HCPCS: 77063; 77067

== ENCOUNTER → 2023-09-06 07:52 | Outpatient (BNVA) | payer MEDICARE, OTHER, SELFPAY | PROVIDERS: PCP Nurse Practitioner; Visit Provider Podiatrist Foot & Ankle Surgery | DX: E11.9 Type 2 diabetes mellitus without complications (principal); L60.3 Nail dystrophy; G24.01 Drug induced subacute dyskinesia; M20.41 Other hammer toe(s) (acquired), right foot; M20.42 Other hammer toe(s) (acquired), left foot; M20.21 Hallux rigidus, right foot; M20.22 Hallux rigidus, left foot | CPT/HCPCS: 11720 ==

== ENCOUNTER → 2023-09-15 07:36 | Outpatient (BNVA) | payer MEDICARE, OTHER, SELFPAY | PROVIDERS: PCP Nurse Practitioner; Visit Provider Psychiatry & Neurology Neurology | DX: R41.3 Other amnesia (principal); R55 Syncope and collapse; R40.4 Transient alteration of awareness; R26.0 Ataxic gait; F43.12 Post-traumatic stress disorder, chronic | CPT/HCPCS: 95813 ==

== ENCOUNTER 2023-11-18 10:49 | Outpatient (CLI) | payer MEDICARE, OTHER, SELFPAY ==
[2023-11-22 11:19] LABS: Quantiferon Mitogen >10.00 IU/mL; Quantiferon Nil 0.07 IU/mL; Quantiferon Plus TB2 0.09 IU/mL; Quantiferon TB Gold NEGATIVE (NEGATIVE)
== END 2023-11-18 10:50 | disposition home or self-care (01) ==
LOC: LAB 10:52
PROVIDERS: PCP Nurse Practitioner; Visit Provider Internal Medicine Rheumatology
DX: Z11.1 Encounter for screening for respiratory tuberculosis (principal)
CPT/HCPCS: 36415; 86480

== ENCOUNTER → 2023-11-23 14:44 | Outpatient (BNVA) | payer MEDICARE, OTHER, SELFPAY | PROVIDERS: Visit Provider Podiatrist Foot & Ankle Surgery | DX: G24.01 Drug induced subacute dyskinesia; L60.3 Nail dystrophy; E11.69 Type 2 diabetes mellitus with other specified complication | CPT/HCPCS: 11721 ==

== ENCOUNTER 2023-12-02 12:38 | Outpatient (CLI) | payer MEDICARE, OTHER, SELFPAY ==
--- NOTE | 2023-12-02 13:00 | MR_ITS ---
WS: [id number] MRA CAROTID ARTERIES HISTORY: E55.9 - Vitamin D deficiency, unspecified COMPARISON: None available. TECHNIQUE: MRA is performed with intravenous gadolinium. MIP and source images are reviewed. Right: No significant stenosis or atherosclerotic plaque within the cervical carotid artery. The bifu rcation is intact. No stenosis. Left: No significant stenosis or atherosclerotic plaque within the cervical carotid artery. The bifur cation is intact. No stenosis. Subclavian Arteries: Proximal subclavian arteries are normal. Vertebral Arteries: Normal. Codominant vertebral arteries are patent. IMPRESSION: Normal MRA carotid arteries. No stenosis.
[2023-12-02] MEDS: gadobenate dimeglumine 20 mL vial IV (14:46)
== END 2023-12-02 12:39 | disposition home or self-care (01) ==
LOC: RAD 12:38
PROVIDERS: PCP Nurse Practitioner; Visit Provider Psychiatry & Neurology Neurology
DX: E55.9 Vitamin D deficiency, unspecified (principal); R26.9 Unspecified abnormalities of gait and mobility; R29.6 Repeated falls; R25.1 Tremor, unspecified; G62.9 Polyneuropathy, unspecified; R41.3 Other amnesia
CPT/HCPCS: 70548; A9577

== ENCOUNTER → 2023-12-07 13:01 | Outpatient (BNVA) | payer MEDICARE, OTHER, SELFPAY | PROVIDERS: PCP Nurse Practitioner; Visit Provider Internal Medicine Rheumatology | DX: Z79.899 Other long term (current) drug therapy (principal); L40.50 Arthropathic psoriasis, unspecified; M19.041 Primary osteoarthritis, right hand; M19.042 Primary osteoarthritis, left hand; Z71.89 Other specified counseling | CPT/HCPCS: 36415; 80076; 82565; 85025; 86140; 99214 ==

== ENCOUNTER 2023-12-09 07:23 | Outpatient (CLI) | payer MEDICARE, OTHER, SELFPAY ==
--- NOTE | 2023-12-09 07:45 | MR_ITS ---
WS: [id number] MRI HEAD WITHOUT CONTRAST TECHNIQUE: Sagittal T1, T2 axial, T2 axial FLAIR, axial and coronal T1 images, axial susceptibility w eighted imaging, axial diffusion weighted images, and coronal T2 images were obtained. CLINICAL INFORMATION: E55.9 - Vitamin D deficiency, unspecified COMPARISON: MRI 10/12/2022 FINDINGS: No evidence of restricted diffusion to suggest acute ischemia. Ventricular system and basal cisterns are patent. Moderate small vessel changes slightly progressed since 2021. Mild parenchymal volume los s. Mild prominence of the ventricular system is unchanged compared to previous. Normal posterior fossa. Normal vascular flow voids at the skull base. No extra-axial fluid collection s. No evidence of mass or mass effect. Paranasal sinuses and mastoid air cells are well aerated. Norm al posterior nasopharynx and parapharyngeal fat. Normal optic chiasm and pituitary infundibulum. Mode rate symmetric atrophy temporal lobes of the [place] formations. IMPRESSION: 1. No evidence of restricted diffusion to suggest acute ischemia. 2. Mild small vessel changes slightly progressed since 2021. Mild parenchymal volume loss. 3. Mild ventriculomegaly is slightly progressed since 2009 and stable compared to 2019. No evidence of obstructive hydrocephalus or transependymal edema. Recommend clinical correlation for NPH if sympt omatic 4. Moderate symmetric atrophy of the temporal lobes and hippocampal formations unchanged. 5. No hemosiderin on susceptibility-weighted images. 6. No other suspicious findings.
--- NOTE | 2023-12-09 08:30 | MR_ITS ---
WS: [id number] MRA HEAD TECHNIQUE: Axial 3-D TOF images obtained with axial images and axial, sagittal, and coronal 2-D refor matted images. CLINICAL INFORMATION: E55.9 - Vitamin D deficiency, unspecified COMPARISON: None. FINDINGS: Distal vertebral arteries are patent. Basilar artery is patent. Normal vascularity to the [place] territo ry bilaterally. Both ICAs are patent at the skull base. Tiny incidental infundibulum or tiny aneurysms in the bilater al cavernous carotid arteries. This measures 2.5 mm on the LEFT and approximately 2 mm on the RIGHT. Patent anterior communicating artery. Small RIGHT A1 segment. Normal vascularity to the CHRISTINE and MCA t erritories bilaterally. No evidence of high-grade proximal stenosis IMPRESSION: 1. No evidence of high-grade proximal stenosis. 2. Tiny incidental infundibulum or tiny aneurysms in the bilateral cavernous carotid arteries descri bed above 3. No other suspicious findings.
== END 2023-12-09 07:24 | disposition home or self-care (01) ==
LOC: RAD 07:23
PROVIDERS: PCP Nurse Practitioner; Visit Provider Psychiatry & Neurology Neurology
DX: E55.9 Vitamin D deficiency, unspecified (principal); G93.89 Other specified disorders of brain; R26.9 Unspecified abnormalities of gait and mobility; R29.6 Repeated falls; R25.1 Tremor, unspecified; G62.9 Polyneuropathy, unspecified; R41.3 Other amnesia
CPT/HCPCS: 70544; 70551

== ENCOUNTER → 2023-12-12 14:45 | Outpatient (BNVA) | payer MEDICARE, OTHER, SELFPAY | PROVIDERS: PCP Nurse Practitioner; Visit Provider Psychiatry & Neurology Neurology | DX: R26.0 Ataxic gait (principal); R55 Syncope and collapse; R40.4 Transient alteration of awareness; R41.3 Other amnesia; R32 Unspecified urinary incontinence; R20.2 Paresthesia of skin; E55.9 Vitamin D deficiency, unspecified; M54.50 Low back pain, unspecified; M43.10 Spondylolisthesis, site unspecified; M79.7 Fibromyalgia; M54.2 Cervicalgia; E07.9 Disorder of thyroid, unspecified; Z79.899 Other long term (current) drug therapy; R29.2 Abnormal reflex; G93.89 Other specified disorders of brain; G31.9 Degenerative disease of nervous system, unspecified | CPT/HCPCS: 36415; 82306; 82542; 82607; 82746; 83735; 83921; 84155; 84165; 84439; 84443; 84481; 85651; 86140; 86160; 86162; 86235; 86255; 86334; 86376; 86431; 86592; 86780; 99212 ==

== ENCOUNTER 2024-01-03 07:25 | Outpatient (CLI) | payer MEDICARE, OTHER, SELFPAY ==
--- NOTE | 2024-01-03 08:00 | MR_ITS ---
WS: [id number] MR CERVICAL SPINE WO/W DATE OF EXAMINATION: MRI CERVICAL SPINE NONCONTRAST AND CONTRAST TECHNIQUE: Sagittal T1, T2 and STIR imaging. Axial T2, gradient, and fiesta imaging. CLINICAL INFORMATION: R41.3 - Other amnesia COMPARISON: MRI 10/12/2022 FINDINGS: Straightening of the normal cervical lordosis. ACDF C4-C5 and C5-C6. Cord signal is normal. No abnorm al gadolinium enhancement. C2-C3: Mild facet arthropathy. Spinal canal is patent. Mild LEFT and no significant RIGHT foraminal n arrowing. C3-C4: Mild disc bulging with osteophytic ridging. Shallow RIGHT paracentral protrusion with slight c ontact of the cervical cord. Mild facet arthropathy. Moderate RIGHT and mild LEFT foraminal narrowing . Mild central canal stenosis. C4-C5: Postoperative changes ACDF. Mild RIGHT and no significant LEFT foraminal narrowing. Moderate f acet arthropathy. C5-C6: Postoperative changes ACDF. Moderate facet arthropathy. Mild LEFT and no significant RIGHT for aminal narrowing. Moderate facet arthropathy. C6-C7: Shallow central protrusion. Mild central canal stenosis. Mild bilateral bony foraminal narrowi ng. Spine canal is patent. C7-T1: Spinal canal and foramen are patent. . Visualized brain stem structures: Normal. Prevertebral soft tissues: Normal. IMPRESSION: 1. Straightening the normal cervical lordosis. Alignment is unchanged compared to previous. ACDF C4- C5 and C5-C6. 2. Cord signal is normal. No abnormal gadolinium enhancement. 3. Mild central canal stenosis C3-C4 with a small RIGHT paracentral protrusion progressed compared t o previous. Moderate RIGHT foraminal narrowing at this level. 4. No other significant changes compared to previous. 5. Mild central canal stenosis C4-C5 and C6-C7. 6. Mild bony foraminal narrowing at RIGHT C4-5 and LEFT C6-7
[2024-01-03] MEDS: gadobenate dimeglumine 20 mL vial IV (08:39)
== END 2024-01-03 07:26 | disposition home or self-care (01) ==
LOC: RAD 07:25
PROVIDERS: PCP Nurse Practitioner; Visit Provider Psychiatry & Neurology Neurology
DX: M48.02 Spinal stenosis, cervical region (principal); R41.3 Other amnesia
CPT/HCPCS: 72156; A9577

== ENCOUNTER → 2024-01-12 13:17 | Outpatient (BNVA) | payer MEDICARE, OTHER, SELFPAY | PROVIDERS: PCP Nurse Practitioner; Visit Provider Nurse Practitioner | DX: E11.9 Type 2 diabetes mellitus without complications (principal); E78.2 Mixed hyperlipidemia | CPT/HCPCS: 80061; 83036 ==

== ENCOUNTER → 2024-02-28 14:42 | Outpatient (BNVA) | payer MEDICARE, SELFPAY | PROVIDERS: PCP Nurse Practitioner; Visit Provider Orthopaedic Surgery | DX: M54.2 Cervicalgia (principal); M54.9 Dorsalgia, unspecified; M43.17 Spondylolisthesis, lumbosacral region | CPT/HCPCS: 72050; 72110; 99204 ==

== ENCOUNTER 2024-03-06 13:17 | Outpatient (CLI) | payer MEDICARE, OTHER, SELFPAY ==
--- NOTE | 2024-03-06 13:30 | CT_ITS ---
WS: [id number] CT HEAD NONCONTRAST HISTORY: S00.93XA - Contusion of unspecified part of head, initial... TECHNIQUE: Contiguous axial imaging performed through the brain in 2.5 mm imaging. Bone and soft tiss ue windows. Sagittal and coronal reformats reviewed. All CT scans at [facility] use at least one of these dose optimization techniques: automated exposure control; mA and/or kV adjustment per pa tient size (includes targeted exams where dose is matched to clinical indication); or iterative recon struction. DLP: 1076.20 mGy.cm COMPARISON: 03/11/2017 No acute intracranial hemorrhage, midline shift or mass effect. Mild atrophy and moderate small vessel ischemic changes. Low-attenuation in the periventricular white matter has progressed since 2017. No infarct. Ventricles: Normal size with no hydrocephalus. No inferior displacement of the cerebellar tonsils. Paranasal sinuses: As visualized are clear. Mastoid air cells: Well pneumatized. Calvarium and scalp: No fracture. There is a small scalp contusion over the posterior high LEFT parie brittny bone. CT/CT head wo con* [id number] IMPRESSION: 1. No acute intracranial hemorrhage or edema. 2. No skull fracture. 3. Mild cerebral atrophy with moderate small vessel ischemic disease. 4. High LEFT parietal scalp contusion.
== END 2024-03-06 13:18 | disposition home or self-care (01) ==
LOC: RAD 13:17
PROVIDERS: PCP Nurse Practitioner; Visit Provider Nurse Practitioner
DX: S00.93XA Contusion of unspecified part of head, initial encounter (principal); W19.XXXA Unspecified fall, initial encounter; Z91.81 History of falling
CPT/HCPCS: 70450

== ENCOUNTER 2024-03-17 09:30 | Emergency (ER) | payer MEDICARE, OTHER, SELFPAY ==
[2024-03-17 09:31] VITALS: BP 178/85; PULSE 130; RESP 30; TEMP 40.1; O2SAT 97; BMI 37.4
--- NOTE | 2024-03-17 09:35 | ECG_ITS ---
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 Measurements Intervals Delta Rate: 113 P: 41 NH: 136 QRS: 25 QRSD: 90 T: 36 QT: 323 QTc: 444 Interpretive Statements SINUS TACHYCARDIA NONSPECIFIC ST & T-WAVE ABNORMALITY ABNORMAL RHYTHM ECG INTERPRETATION BASED ON A DEFAULT AGE OF 40 YEARS No previous ECG available for comparison Electronically Signed On 03-17-2024 20:17:01 CDT by Gilberto Avery M.D. [id number] f
--- NOTE | 2024-03-17 09:37 | CTR_ITS ---
PROCEDURE INFORMATION: Exam: CT Head Without Contrast Exam date and time: 03/17/2024 10:05 AM Age: 63 years old Clinical indication: Altered mental status/memory loss and coma or unconsciousness; Confusion or disorientation; Additional info: AMS TECHNIQUE: Imaging protocol: Computed tomography of the head without contrast. Radiation optimization: All CT scans at this facility use at least one of these dose optimization techniques: automated exposure control; mA and/or kV adjustment per patient size (includes targeted exams where dose is matched to clinical indication); or iterative reconstruction. COMPARISON: CT head wo con* [id number] 03/06/2024 1:31 PM RADIATION DOSE METRICS: Total DLP (mGy-cm): 890.88 FINDINGS: Brain: Streak artifact considerably limits evaluation of posterior fossa structures, particularly the brainstem. There is no obvious acute pathology such as infarct, mass effect, or hemorrhage in these areas affected by artifact, but subtle such pathology involving posterior fossa structures cannot be excluded. There is no acute pathology in those areas of the brain not affected by artifact. There is mild, diffuse atrophy of the brain.There is ill-defined, fairly symmetric low-density within the cerebral deep white matter bilaterally which is likely the sequela of chronic ischemic change due to small vessel disease. Cerebral ventricles: Prominent ventricles due to the atrophy. Paranasal sinuses: Visualized sinuses are unremarkable. No fluid levels. Mastoid air cells: Visualized mastoid air cells are well aerated. Bones: Unremarkable. No acute fracture. Soft tissues: Unremarkable. CT/CT head wo con* [id number] IMPRESSION: 1. Posterior fossa structures are partially obscured by streak artifact. No obvious acute abnormality involving posterior fossa structures, but the artifact makes it difficult to exclude subtle acute pathology here. If there is continued clinical suspicion of such, then consider an MRI. 2. No acute findings in those areas not affected by artifact. 3. Additional details as above.
--- NOTE | 2024-03-17 09:38 | XRR_ITS ---
PROCEDURE INFORMATION: Exam: XR Chest Exam date and time: 03/17/2024 10:10 AM Age: 63 years old Clinical indication: Other: AMS TECHNIQUE: Imaging protocol: Radiologic exam of the chest. Views: 1 view. COMPARISON: CR XR ribs LT mn 3V w CXR1V [id number] 08/24/2022 11:20 AM FINDINGS: Lungs: Unremarkable. No consolidation. Pleural spaces: Unremarkable. No pleural effusion. No pneumothorax. Heart/Mediastinum: Unremarkable. No cardiomegaly. Diaphragm: New mild elevation or eventration of the right hemidiaphragm. Bones/joints: Unchanged mild-moderate multilevel spondylosis Otherwise, unremarkable. Intraperitoneal space: Unchanged surgical clips in the right upper quadrant. XR/XR chest 1V portable [id number] IMPRESSION: 1. New mild elevation or eventration of the right hemidiaphragm. 2. No other acute findings.
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
[2024-03-17 09:55] LABS: ABG PCO2 25.9 mmHg (35-45); ABG PH Result 7.51 (7.35-7.45); Arterial Blood Gas Hematocrit 43.7 % (37-47); Base Excess ABG -0.6 mmol/L (-2.0-2.0); Blood Gas Allen Test Pos; Blood Gas Operator Identificat CAK; Blood Gas Sample Site Radial, left; Blood Gas Sample Type Arterial; HCO3 ABG 20.8 mmol/L (22-26); Oxygen Device NC; PO2 ABG 78.5 mmHg (80.0-100.0); PO2 FiO2 Ratio Arterial Blood 0
[2024-03-17] MEDS: lactated ringers 1,000 ML 999 ML IV (09:59)
[2024-03-17 10:08] LABS: Basophils # 0.1 10^3/uL (0.0-0.1); Basophils % 0.3 %; Eosinophils % 0.1 %; Hematocrit 41.7 % (36-47); Lymphocytes # 0.2 10^3/uL (0.8-4.8); Lymphocytes % 1.7 %; Mean Corpuscular HGB Conc 33.8 g/dL (30-55); Mean Corpuscular Hemoglobin 30.5 pg (27-33); Mean Corpuscular Volume 90.3 fl (85-98); Monocytes # 0.7 10^3/uL (0.2-0.9); Monocytes % 4.6 %; Neutrophils # 13.41 10^3/uL (1.8-7.7); Neutrophils % 92.8 %; Nucleated Red Blood Cells % 0 %; Platelet Count 263 10^3/cmm (157-399); Red Blood Count 4.62 10^6/uL (3.85-5.65); Red Cell Distribution Width 13.8 % (12.1-15.1); White Blood Count 14.46 10^3/uL (3.29-11.43)
[2024-03-17 10:24] LABS: Lactic Sepsis W/Reflex 1.9 mmol/L (0.5-2.2)
[2024-03-17 10:28] LABS: Troponin(5th) Baseline 9 ng/L (0-10)
[2024-03-17 10:35] LABS: Alanine Aminotransferase 9 U/L (0-33); Albumin Level 4.4 g/dL (3.5-5.2); Alkaline Phosphatase 73 U/L (35-105); Anion Gap 20.8 (5-19); Aspartate Amino Transferase 19 U/L (0-32); Blood Urea Nitrogen 14 mg/dL (8-23); Calcium 9.6 mg/dL (8.5-10.5); Carbon Dioxide 20 mmol/L (22-29); Chloride 98 mmol/L (98-107); Creatinine Clr Calc Pharmacy 99.9565; Globulin 3.4 g/dL (1.3-4.6); Glomerular Filtration Rate 85.1 mL/min (90-130); Glucose 231 mg/dL (65-115); Magnesium 1.4 mg/dL (1.7-2.3); Osmolality Calculated 290 mOsm/kg (285-295); Sodium 136 mmol/L (136-145); Thyroid Stimulating Hormone 5.85 uIU/mL (0.27-4.20); Total Bilirubin 0.7 mg/dL (0.15-1.2); Total Protein 7.8 g/dL (6.6-8.7)
[2024-03-17 10:36] VITALS: BP 148/94; PULSE 119; RESP 44; O2SAT 97
[2024-03-17 10:41] LABS: Bilirubin Urine Neg (Negative); Blood Urine 2+ (Negative); Glucose Urine UA 1+ (Normal); Ketones Urine 2+ (Negative); Nitrate Urine Positive (Negative); Protein Urine 1+ (Negative); Specific Gravity, Urine 1.015 (1.005-1.030); Urine Appearance Cloudy (CLEAR); Urine Color Straw (Yellow); Urobilinogen Urine Norm (Negative); pH Urine 5 (5-7)
[2024-03-17 10:42] LABS: Add Urine Culture? No; Add Urine Microscopic? YES; Bacteria Urine 2+ /hpf; Leukocyte Esterase Urine 2+ (Negative); Squamous Epithelial Cell Urine 25-40 /hpf (0-5); WBC Urine TOO NUMEROUS TO CNT /hpf (0-5)
[2024-03-17 10:43] LABS: Potassium 2.8 mmol/L (3.5-5.1)
[2024-03-17 10:51] LABS: Influenza A by IFA negative (Negative); Influenza B by IFA negative (Negative)
[2024-03-17 10:52] LABS: SARS Covid-2 Antigen negative (Negative)
[2024-03-17] MEDS: cefTRIAXone 2,000 MG in sodium chloride 0.9% (plus) 50 ML 100 MG IV (11:34)
[2024-03-17] MEDS: lidocaine 1% 5 ML in potassium chloride premix 100 ML 26.25 ML IV (11:34)
[2024-03-17 11:35] VITALS: BP 186/93; PULSE 110; RESP 50; TEMP 39.7; O2SAT 97
--- NOTE | 2024-03-17 11:37 | PC.NURSE ---
Urine Output: 1,000 mL output from indwelling portillo @[id number]
--- NOTE | 2024-03-17 11:47 | PC.NURSE ---
NURSE ASKED DR. WOODRUFF FOR CENTRAL LINE PLACEMENT ON CRITICAL PATIENT. PT HAS 22 IN LEFT FOREARM AND [address] WOODRUFF VERBALIZED CENTRAL LINE ORDER.
[2024-03-17 12:27] LABS: Troponin 5 2HR 13.71 ng/L (0-10); Troponin 5 2HR Delta 4.71 ABS# (0-10)
[2024-03-17] MEDS: hydrocortisone inj 100 MG in sodium chloride 0.9% (100 ml) 100 ML 10.1999999999999993 MG IV (13:08)
--- NOTE | 2024-03-17 13:17 | PC.NURSE ---
pt bedding changed, placed inflatable mattress under patient.
[2024-03-17] MEDS: acetaminophen 650 mg Supp PR (13:46)
[2024-03-17] MEDS: vancomycin 1,500 MG/300 ML PIGGYBACK 200 MG IV (13:46)
[2024-03-17 13:47] VITALS: PULSE 105; RESP 49; TEMP 39.4; O2SAT 97
--- NOTE | 2024-03-17 14:07 | PC.NURSE ---
Patient Status Update: report called to Cindy Alonso at [facility] in [place]. No further questions verbalized. Pt updated on status of transfer, verbalized understanding.
[2024-03-17 14:55] VITALS: BP 176/94; PULSE 106; RESP 55; O2SAT 95
--- NOTE | 2024-03-17 15:15 | PC.NURSE ---
Report given to [facility], no further questions. Bria Thorntonfield updated about transfer status.
[2024-03-17 15:16] VITALS: BP 176/94; PULSE 106; RESP 55; O2SAT 95
[2024-03-17 23:23] LABS: Bacillus cereus group Not Detected (NOT DETECT); Bacillus subtillis group Not Detected (NOT DETECT); Corynebacterium Not Detected (NOT DETECT); Cutibacterium acnes (P.acnes) Not Detected (NOT DETECT); Enterococcus Not Detected (NOT DETECT); Enterococcus faecalis Not Detected (NOT DETECT); Enterococcus faecium Not Detected (NOT DETECT); Lactobacillus species Not Detected (NOT DETECT); Listeria Not Detected (NOT DETECT); Listeria monocytogenes Not Detected (NOT DETECT); Micrococcus Not Detected (NOT DETECT); Pan Candida Not Detected (NOT DETECT); Pan Gram-Negative Not Detected (NOT DETECT); Staphylococcus epidermidis Not Detected (NOT DETECT); Staphylococcus lugdunensis Not Detected (NOT DETECT); Staphylococcus species Not Detected (NOT DETECT); Streptococcus agalactiae Detected (NOT DETECT); Streptococcus anginosus group Not Detected (NOT DETECT); Streptococcus pneumoniae Not Detected (NOT DETECT); Streptococcus pyogenes Not Detected (NOT DETECT); Streptococcus species Detected (NOT DETECT)
--- NOTE | 2024-03-18 08:45 | PC.NURSE ---
BLOOD CULTURES PRELIMINARY RESULTS FAXED TO [facility].
--- NOTE | 2024-03-18 08:49 | DCPLANNER ---
Faxed Blood culture results to [facility] [phone]
== END 2024-03-17 15:30 | disposition short-term general hospital (02) ==
PROVIDERS: Emergency Provider Emergency Medicine; PCP Nurse Practitioner
DX: R50.9 Fever, unspecified (principal); R41.0 Disorientation, unspecified; Z79.85 Long-term (current) use of injectable non-insulin antidiabetic drugs; Z11.52 Encounter for screening for COVID-19; Z87.891 Personal history of nicotine dependence; I10 Essential (primary) hypertension; E11.9 Type 2 diabetes mellitus without complications; R00.0 Tachycardia, unspecified
CPT/HCPCS: 36415; 36600; 51702; 62270; 70450; 71045; 80053; 81001; 82803; 83605; 83735; 84443; 84484; 85025; 87040; 87150; 87186; 87205; 87426; 87804; 93005; 96365; 96366; 99285; 99291; 99292; J0696; J1720; J3370; J3480; J7120

== ENCOUNTER → 2024-05-02 13:51 | Outpatient (BNVA) | payer MEDICARE, OTHER, SELFPAY | PROVIDERS: PCP Nurse Practitioner; Visit Provider Nurse Practitioner | DX: N31.9 Neuromuscular dysfunction of bladder, unspecified (principal); N39.0 Urinary tract infection, site not specified; I10 Essential (primary) hypertension; J30.2 Other seasonal allergic rhinitis; K58.0 Irritable bowel syndrome with diarrhea; E11.9 Type 2 diabetes mellitus without complications; F41.9 Anxiety disorder, unspecified; G43.909 Migraine, unspecified, not intractable, without status migrainosus | CPT/HCPCS: 80053; 80061; 83036 ==

== ENCOUNTER → 2024-05-09 13:15 | Outpatient (BNVA) | payer MEDICARE, OTHER, SELFPAY | PROVIDERS: PCP Nurse Practitioner; Visit Provider Internal Medicine Rheumatology | DX: L40.50 Arthropathic psoriasis, unspecified (principal); M19.041 Primary osteoarthritis, right hand; M19.042 Primary osteoarthritis, left hand; G62.9 Polyneuropathy, unspecified; M19.072 Primary osteoarthritis, left ankle and foot; K31.84 Gastroparesis; Z79.899 Other long term (current) drug therapy; Z71.85 Encounter for immunization safety counseling; Z85.048 Personal history of other malignant neoplasm of rectum, rectosigmoid junction, and anus | CPT/HCPCS: 99214 ==

== ENCOUNTER 2024-07-06 10:33 | Outpatient (CLI) | payer MEDICARE, OTHER, SELFPAY ==
[2024-07-06 10:57] LABS: Basophils # 0.1 10^3/uL (0.0-0.1); Eosinophils # 0.3 10^3/uL (0.0-0.8); Eosinophils % 6.4 %; Hematocrit 37.7 % (36-47); Lymphocytes # 1.1 10^3/uL (0.8-4.8); Mean Corpuscular HGB Conc 32.1 g/dL (30-55); Mean Corpuscular Hemoglobin 29.7 pg (27-33); Mean Corpuscular Volume 92.4 fl (85-98); Mean Platelet Volume 10.2 fL (7.4-10.4); Monocytes # 0.5 10^3/uL (0.2-0.9); Monocytes % 9.6 %; Neutrophils # 3.15 10^3/uL (1.8-7.7); Neutrophils % 60.6 %; Nucleated Red Blood Cells % 0 %; Platelet Count 226 10^3/cmm (157-399); Red Blood Count 4.08 10^6/uL (3.85-5.65); Red Cell Distribution Width 13.5 % (12.1-15.1); White Blood Count 5.19 10^3/uL (3.29-11.43)
[2024-07-06 11:14] LABS: Estmated Average Glucose 123; Hemoglobin A1C 5.9 % (4.0-6.0)
[2024-07-06 11:36] LABS: 25 Hydroxy Vitamin D 39 ng/mL (30-100); Alanine Aminotransferase < 5 U/L (0-33); Albumin Level 4.4 g/dL (3.5-5.2); Alkaline Phosphatase 54 U/L (35-105); Anion Gap 14.4 (5-19); Aspartate Amino Transferase 14 U/L (0-32); Blood Urea Nitrogen 15 mg/dL (8-23); Calcium 9.1 mg/dL (8.5-10.5); Carbon Dioxide 26 mmol/L (22-29); Chloride 108 mmol/L (98-107); Chol HDL Ratio 2.48 mg/dL (0.0-4.40); Cholesterol 203 mg/dL (0-200); Globulin 2.8 g/dL (1.3-4.6); Glomerular Filtration Rate 85.1 mL/min (90-130); Glucose 142 mg/dL (65-115); HDL Cholesterol 82 mg/dL (60-100); LDL Cholesterol Calculated 90 mg/dL (50-129); Osmolality Calculated 301 mOsm/kg (285-295); Potassium 4.4 mmol/L (3.5-5.1); Sodium 144 mmol/L (136-145); Thyroid Stimulating Hormone 1.87 uIU/mL (0.27-4.20); Total Bilirubin 0.2 mg/dL (0.15-1.2); Total Protein 7.2 g/dL (6.6-8.7); Triglycerides 157 mg/dL (0-150); VLDL Cholestrol Calculation 31 mg/dL (0-30)
== END 2024-07-06 10:34 | disposition home or self-care (01) ==
LOC: LAB 10:36
PROVIDERS: PCP Nurse Practitioner; Visit Provider Nurse Practitioner
DX: E11.9 Type 2 diabetes mellitus without complications (principal); E55.9 Vitamin D deficiency, unspecified
CPT/HCPCS: 36415; 80053; 80061; 82306; 83036; 84443; 85025

== ENCOUNTER → 2024-07-16 13:22 | Outpatient (BNVA) | payer MEDICARE, OTHER, SELFPAY | PROVIDERS: PCP Nurse Practitioner; Visit Provider Psychiatry & Neurology Neurology | DX: G91.2 (Idiopathic) normal pressure hydrocephalus (principal); R41.3 Other amnesia; R55 Syncope and collapse; R20.2 Paresthesia of skin; E55.9 Vitamin D deficiency, unspecified; R26.0 Ataxic gait; M54.50 Low back pain, unspecified; M79.7 Fibromyalgia; R32 Unspecified urinary incontinence; E07.9 Disorder of thyroid, unspecified; Z79.899 Other long term (current) drug therapy; R40.4 Transient alteration of awareness; R29.2 Abnormal reflex; G93.89 Other specified disorders of brain; G31.9 Degenerative disease of nervous system, unspecified; M43.17 Spondylolisthesis, lumbosacral region | CPT/HCPCS: 99212 ==

== ENCOUNTER → 2024-09-05 08:52 | Outpatient (BNVA) | payer MEDICARE, OTHER, SELFPAY | PROVIDERS: PCP Nurse Practitioner; Visit Provider Nurse Practitioner | DX: J30.2 Other seasonal allergic rhinitis (principal) | CPT/HCPCS: 86003; 86008 ==

== ENCOUNTER 2024-09-06 09:35 | Outpatient (CLI) | payer MEDICARE, OTHER, SELFPAY ==
--- NOTE | 2024-09-06 10:00 | MM_ITS ---
WS: [id number] Bilateral screening 3D tomosynthesis digital mammogram, 09/06/2024 9:50 AM Clinical Data: Z12.31 - Encounter for screening mammogram for malignant ... Comparison: 09/05/2023, 01/13/2021, 02/19/2015, 12/14/2013, 03/28/2012, 01/19/2011, 01/05/2011, 09/03/2008. Findings: No spiculated masses or clustered calcifications are seen. There are no secondary signs of carcinoma . MM/MM [facility] tomosynthesis [id number] Impression: Negative bilateral mammogram unchanged. Recommend annual screening mammograms. BIRADS: 1 - Negative. FOLLOW UP: 1 Year Follow-up DENSITY: There are scattered areas of fibroglandular density. The CAD purchase order checker was used
== END 2024-09-06 09:36 | disposition home or self-care (01) ==
LOC: RAD 09:35
PROVIDERS: PCP Nurse Practitioner; Visit Provider Nurse Practitioner
DX: Z12.31 Encounter for screening mammogram for malignant neoplasm of breast (principal)
CPT/HCPCS: 77063; 77067

== ENCOUNTER → 2024-09-13 09:00 | Outpatient (BNVA) | payer MEDICARE, OTHER, SELFPAY | PROVIDERS: PCP Nurse Practitioner; Referring Provider Nurse Practitioner; Visit Provider Student in an Organized Health Care Education/Training Program | DX: Z12.11 Encounter for screening for malignant neoplasm of colon (principal) | CPT/HCPCS: 99024; 99204 ==

== ENCOUNTER 2024-09-13 10:18 | Outpatient (CLI) | payer MEDICARE, OTHER, SELFPAY | END 2024-09-13 10:19 | disposition home or self-care (01) | LOC: LAB 10:18 | PROVIDERS: PCP Nurse Practitioner; Visit Provider Nurse Practitioner | DX: E78.2 Mixed hyperlipidemia (principal); I10 Essential (primary) hypertension | CPT/HCPCS: 36415; 80053; 80061; 84443 ==

== ENCOUNTER → 2024-09-26 14:00 | Outpatient (BNVA) | payer MEDICARE, OTHER, SELFPAY | PROVIDERS: PCP Nurse Practitioner; Visit Provider Internal Medicine Rheumatology | DX: Z79.899 Other long term (current) drug therapy (principal); L40.50 Arthropathic psoriasis, unspecified; M19.041 Primary osteoarthritis, right hand; M19.042 Primary osteoarthritis, left hand; Z71.89 Other specified counseling; K21.9 Gastro-esophageal reflux disease without esophagitis; K31.84 Gastroparesis; G62.9 Polyneuropathy, unspecified; Z85.048 Personal history of other malignant neoplasm of rectum, rectosigmoid junction, and anus | CPT/HCPCS: 99214 ==

== ENCOUNTER → 2024-11-05 11:20 | Outpatient (BNVA) | payer MEDICARE, OTHER, SELFPAY | PROVIDERS: PCP Nurse Practitioner; Visit Provider Podiatrist Foot & Ankle Surgery | DX: L60.8 Other nail disorders (principal); E11.69 Type 2 diabetes mellitus with other specified complication; G24.01 Drug induced subacute dyskinesia; L60.3 Nail dystrophy | CPT/HCPCS: 11721 ==

== ENCOUNTER 2024-11-26 11:28 | Outpatient (CLI) | payer MEDICARE, OTHER, SELFPAY ==
--- NOTE | 2024-11-26 11:33 | XRR_ITS ---
PROCEDURE INFORMATION: Exam: XR right Shoulder Exam date and time: 11/26/2024 11:42 AM Age: 63 years old Clinical indication: Pain; Shoulder; Bilateral; Additional info: M25.511 - pain in right shoulder TECHNIQUE: Imaging protocol: Radiologic exam of the right shoulder. Views: 2 or more views. COMPARISON: CR XR chest 1V portable [id number] 03/17/2024 10:10 AM FINDINGS: Bones/joints: Mild degenerative change of the acromioclavicular joint. Glenohumeral joint intact. Normal acromiohumeral interval. Soft tissues: No significant soft tissue pathology. XR/XR shoulder LT min 2V* [id number] IMPRESSION: No acute pathology.
--- NOTE | 2024-11-26 11:33 | XRR_ITS ---
PROCEDURE INFORMATION: Exam: XR left Shoulder Exam date and time: 11/26/2024 11:42 AM Age: 63 years old Clinical indication: Pain; Shoulder; Bilateral; Additional info: M25.511 - pain in right shoulder TECHNIQUE: Imaging protocol: Radiologic exam of the left shoulder. Views: 2 or more views. COMPARISON: CR XR chest 1V portable [id number] 03/17/2024 10:10 AM FINDINGS: Tubes, catheters and devices: Surgical hardware projects over the cervical spine. Bones/joints: Bones and joint spaces within normal limits. Normal acromiohumeral interval. Soft tissues: No significant soft tissue pathology. XR/XR shoulder RT min 2V* [id number] IMPRESSION: No significant left shoulder pathology.
== END 2024-11-26 11:29 | disposition home or self-care (01) ==
LOC: RAD 11:30
PROVIDERS: PCP Nurse Practitioner; Visit Provider Nurse Practitioner
DX: M25.511 Pain in right shoulder (principal); M25.512 Pain in left shoulder; M24.9 Joint derangement, unspecified
CPT/HCPCS: 73030

== ENCOUNTER 2024-12-10 10:47 | Outpatient (CLI) | payer MEDICARE, OTHER, SELFPAY ==
--- NOTE | 2024-12-10 11:25 | MR_ITS ---
WS: [id number] MRI LUMBAR SPINE NONCONTRAST TECHNIQUE: Sagittal T1, T2 and STIR imaging. Axial T1 and T2 imaging. CLINICAL INFORMATION: LUMBAR RADICULOPATHY COMPARISON: MRI 2013 FINDINGS: Grade 1-2 anterolisthesis L5 on S1 with chronic spondylolysis progressed since 2013 MRI. No acute com pression fractures. L1-L2: Mild facet arthropathy. Spinal canal and foramen are patent. L2-L3: Mild annular bulging. Mild central canal stenosis. Narrowing of the subarticular recess bilate rally. Small foraminal protrusions with mild bilateral foraminal narrowing. L3-L4: Mild disc bulging with a shallow central protrusion. Moderate central canal stenosis. Impingem ent on the subarticular recess bilaterally. Moderate facet arthropathy. Moderate LEFT greater than RI GHT foraminal narrowing. L4-L5: Mild annular bulging. Moderate facet arthropathy. Mild LEFT and no significant RIGHT foraminal narrowing. L5-S1: Grade 2 anterolisthesis with chronic spondylolysis. Moderate to severe RIGHT greater than LEFT foraminal narrowing. Spinal canal is patent. Moderate facet arthropathy. Visualized pelvic bony structures: Normal. Paravertebral soft tissues: Normal. MR/MR lumbar spine wo con* [id number] IMPRESSION: 1. Mild lumbar curve. No acute compression. 2. Grade 1-2 anterolisthesis L5 on S1 with chronic spondylolysis progressed si nce 2012. 3. Mild central canal stenosis L2-3 and moderate L3-4 with impingement on the subarticular recess bilaterally. Shallow central protrusion L3-4. 4. Disc bulging L4-5 with impingement on the traversing L5 nerve roots. 5. Moderate to severe RIGHT greater than LEFT L5-S1 foraminal narrowing. 6. Moderate facet arthropathy L3-L5. 7. Moderate LEFT L3-4 foraminal narrowing with a LEFT foraminal protrusion.
== END 2024-12-10 10:48 | disposition home or self-care (01) ==
PROVIDERS: PCP Nurse Practitioner; Visit Provider Neurological Surgery
DX: M54.16 Radiculopathy, lumbar region (principal); M43.8X6 Other specified deforming dorsopathies, lumbar region; M43.07 Spondylolysis, lumbosacral region; R93.7 Abnormal findings on diagnostic imaging of other parts of musculoskeletal system; M48.061 Spinal stenosis, lumbar region without neurogenic claudication; M51.360 Other intervertebral disc degeneration, lumbar region with discogenic back pain only; M47.896 Other spondylosis, lumbar region; M48.07 Spinal stenosis, lumbosacral region; M47.897 Other spondylosis, lumbosacral region
CPT/HCPCS: 72148

== ENCOUNTER 2024-12-27 09:34 | Outpatient (CLI) | payer MEDICARE, OTHER, SELFPAY ==
[2024-12-27 10:16] LABS: Basophils # 0.1 10^3/uL (0.0-0.1); Basophils % 1.3 %; Eosinophils # 0.3 10^3/uL (0.0-0.8); Eosinophils % 6.1 %; Hematocrit 34.1 % (36-47); Lymphocytes # 0.8 10^3/uL (0.8-4.8); Lymphocytes % 14.2 %; Mean Corpuscular HGB Conc 31.4 g/dL (30-55); Mean Corpuscular Volume 95.5 fl (85-98); Mean Platelet Volume 10.1 fL (7.4-10.4); Monocytes # 0.6 10^3/uL (0.2-0.9); Monocytes % 10.2 %; Neutrophils # 3.78 10^3/uL (1.8-7.7); Neutrophils % 67.7 %; Nucleated Red Blood Cells % 0 %; Platelet Count 261 10^3/cmm (157-399); Red Blood Count 3.57 10^6/uL (3.85-5.65); Red Cell Distribution Width 15.4 % (12.1-15.1); White Blood Count 5.58 10^3/uL (3.29-11.43)
[2024-12-27 10:19] LABS: Erythrocyte Sedimentation Rate 3 mm/hr (0-15)
[2024-12-27 10:30] LABS: Alanine Aminotransferase < 5 U/L (0-33); Albumin Level 4.4 g/dL (3.5-5.2); Alkaline Phosphatase 43 U/L (35-105); Aspartate Amino Transferase 14 U/L (0-32); C Reactive Protein 4.9 mg/L (0.0-4.9); Globulin 2.8 g/dL (1.3-4.6); Glomerular Filtration Rate 72.7 mL/min (90-130); Total Bilirubin 0.2 mg/dL (0.15-1.2); Total Protein 7.2 g/dL (6.6-8.7)
== END 2024-12-27 09:35 | disposition home or self-care (01) ==
LOC: LAB 09:36
PROVIDERS: PCP Nurse Practitioner; Visit Provider Internal Medicine Rheumatology
DX: Z79.899 Other long term (current) drug therapy (principal); L40.50 Arthropathic psoriasis, unspecified
CPT/HCPCS: 36415; 80076; 82565; 85025; 85651; 86140

== ENCOUNTER 2025-01-18 11:46 | Outpatient (CLI) | payer MEDICARE, OTHER, SELFPAY ==
[2025-01-18 12:02] LABS: Basophils # 0.1 10^3/uL (0.0-0.1); Basophils % 0.9 %; Eosinophils # 0.5 10^3/uL (0.0-0.8); Eosinophils % 9.4 %; Hematocrit 34.2 % (36-47); Lymphocytes % 17.3 %; Mean Corpuscular HGB Conc 31.3 g/dL (30-55); Mean Corpuscular Hemoglobin 29.9 pg (27-33); Mean Corpuscular Volume 95.5 fl (85-98); Mean Platelet Volume 9.6 fL (7.4-10.4); Monocytes # 0.7 10^3/uL (0.2-0.9); Monocytes % 12.3 %; Neutrophils # 3.33 10^3/uL (1.8-7.7); Neutrophils % 59.2 %; Nucleated Red Blood Cells % 0 %; Platelet Count 274 10^3/cmm (157-399); Red Blood Count 3.58 10^6/uL (3.85-5.65); Red Cell Distribution Width 15.1 % (12.1-15.1); White Blood Count 5.62 10^3/uL (3.29-11.43)
== END 2025-01-18 11:47 | disposition home or self-care (01) ==
LOC: LAB 11:48
PROVIDERS: PCP Nurse Practitioner; Visit Provider Internal Medicine Rheumatology
DX: Z79.899 Other long term (current) drug therapy (principal); R79.89 Other specified abnormal findings of blood chemistry
CPT/HCPCS: 85025

== ENCOUNTER → 2025-01-23 13:34 | Outpatient (BNVA) | payer MEDICARE, OTHER, SELFPAY | PROVIDERS: PCP Nurse Practitioner; Visit Provider Internal Medicine Rheumatology | DX: L40.50 Arthropathic psoriasis, unspecified (principal); Z79.899 Other long term (current) drug therapy; M19.041 Primary osteoarthritis, right hand; M19.042 Primary osteoarthritis, left hand; Z71.89 Other specified counseling | CPT/HCPCS: 99214 ==

== ENCOUNTER 2025-01-31 09:01 | Outpatient (CLI) | payer MEDICARE, OTHER, SELFPAY ==
[2025-01-31 10:17] LABS: Alanine Aminotransferase < 5 U/L (0-33); Albumin Level 4.5 g/dL (3.5-5.2); Alkaline Phosphatase 46 U/L (35-105); Anion Gap 16.2 (5-19); Aspartate Amino Transferase 14 U/L (0-32); Blood Urea Nitrogen 18 mg/dL (8-23); Calcium 9.7 mg/dL (8.5-10.5); Carbon Dioxide 25 mmol/L (22-29); Chloride 105 mmol/L (98-107); Chol HDL Ratio 1.89 mg/dL (0.0-4.40); Cholesterol 217 mg/dL (0-200); Globulin 2.9 g/dL (1.3-4.6); Glomerular Filtration Rate 72.7 mL/min (90-130); Glucose 104 mg/dL (65-115); HDL Cholesterol 115 mg/dL (60-100); LDL Cholesterol Calculated 87 mg/dL (50-129); Osmolality Calculated 296 mOsm/kg (285-295); Potassium 4.2 mmol/L (3.5-5.1); Sodium 142 mmol/L (136-145); Total Bilirubin 0.2 mg/dL (0.15-1.2); Total Protein 7.4 g/dL (6.6-8.7); Triglycerides 75 mg/dL (0-150); VLDL Cholestrol Calculation 15 mg/dL (0-30)
[2025-01-31 10:27] LABS: Estmated Average Glucose 100; Hemoglobin A1C 5.1 % (4.0-6.0)
[2025-01-31 10:32] LABS: 25 Hydroxy Vitamin D 48 ng/mL (30-100)
== END 2025-01-31 09:02 | disposition home or self-care (01) ==
LOC: LAB 09:04
PROVIDERS: PCP Nurse Practitioner; Visit Provider Nurse Practitioner
DX: E55.9 Vitamin D deficiency, unspecified (principal); Z79.899 Other long term (current) drug therapy; E11.9 Type 2 diabetes mellitus without complications; I10 Essential (primary) hypertension; E78.2 Mixed hyperlipidemia
CPT/HCPCS: 36415; 80053; 80061; 82306; 83036

== ENCOUNTER → 2025-02-05 09:31 | Outpatient (BNVA) | payer MEDICARE, OTHER, SELFPAY | PROVIDERS: PCP Nurse Practitioner; Referring Provider Nurse Practitioner; Visit Provider Student in an Organized Health Care Education/Training Program | DX: E11.69 Type 2 diabetes mellitus with other specified complication (principal); L60.3 Nail dystrophy; G24.01 Drug induced subacute dyskinesia; M75.42 Impingement syndrome of left shoulder; M75.41 Impingement syndrome of right shoulder; R20.0 Anesthesia of skin; R20.2 Paresthesia of skin | CPT/HCPCS: 11721; 20610; 99204; J3301; J9999 ==

== ENCOUNTER → 2025-03-04 07:58 | Outpatient (BNVA) | payer MEDICARE, OTHER, SELFPAY | PROVIDERS: PCP Nurse Practitioner; Visit Provider Student in an Organized Health Care Education/Training Program | DX: R03.0 Elevated blood-pressure reading, without diagnosis of hypertension (principal); R12 Heartburn; Z12.11 Encounter for screening for malignant neoplasm of colon | CPT/HCPCS: 99214 ==

== ENCOUNTER → 2025-04-10 13:26 | Outpatient (BNVA) | payer MEDICARE, OTHER, SELFPAY | PROVIDERS: PCP Nurse Practitioner; Visit Provider Emergency Medicine | DX: R39.9 Unspecified symptoms and signs involving the genitourinary system (principal); N30.00 Acute cystitis without hematuria | CPT/HCPCS: 81000; 87086 ==

== ENCOUNTER → 2025-04-25 10:24 | Outpatient (BNVA) | payer MEDICARE, OTHER, SELFPAY | PROVIDERS: PCP Nurse Practitioner; Visit Provider Nurse Practitioner | DX: Z79.899 Other long term (current) drug therapy (principal); L40.50 Arthropathic psoriasis, unspecified; Z12.4 Encounter for screening for malignant neoplasm of cervix | CPT/HCPCS: 80076; 82565; 85025; 85651; 86140; 88175 ==

== ENCOUNTER → 2025-04-26 08:16 | Outpatient (BNVA) | payer MEDICARE, OTHER, SELFPAY | PROVIDERS: PCP Nurse Practitioner; Visit Provider Family Medicine Adult Medicine | DX: R39.9 Unspecified symptoms and signs involving the genitourinary system (principal); R30.0 Dysuria | CPT/HCPCS: 81000 ==

== ENCOUNTER → 2025-04-30 10:42 | Outpatient (BNVA) | payer MEDICARE, OTHER, SELFPAY | PROVIDERS: PCP Nurse Practitioner; Visit Provider Podiatrist Foot & Ankle Surgery | DX: E11.9 Type 2 diabetes mellitus without complications (principal); G24.01 Drug induced subacute dyskinesia; L60.3 Nail dystrophy | CPT/HCPCS: 11721 ==

== ENCOUNTER → 2025-05-15 13:25 | Outpatient (BNVA) | payer MEDICARE, OTHER, SELFPAY | PROVIDERS: PCP Nurse Practitioner; Visit Provider Internal Medicine Rheumatology | DX: L40.50 Arthropathic psoriasis, unspecified (principal); Z79.899 Other long term (current) drug therapy; M19.041 Primary osteoarthritis, right hand; M19.042 Primary osteoarthritis, left hand; Z71.85 Encounter for immunization safety counseling | CPT/HCPCS: 99214 ==

== ENCOUNTER → 2025-07-09 11:26 | Outpatient (BNVA) | payer MEDICARE, OTHER, SELFPAY | PROVIDERS: PCP Nurse Practitioner; Visit Provider Podiatrist Foot & Ankle Surgery | DX: E11.8 Type 2 diabetes mellitus with unspecified complications (principal); L60.3 Nail dystrophy; G24.01 Drug induced subacute dyskinesia | CPT/HCPCS: 11721 ==

== ENCOUNTER → 2025-07-29 08:21 | Outpatient (BNVA) | payer MEDICARE, OTHER, SELFPAY | PROVIDERS: PCP Nurse Practitioner; Visit Provider Student in an Organized Health Care Education/Training Program | DX: R12 Heartburn (principal) | CPT/HCPCS: 99214 ==

== ENCOUNTER 2025-08-20 08:10 | Day surgery (SDC) | payer MEDICARE, OTHER, SELFPAY ==
[2025-08-20 08:30] VITALS: BP 142/82; PULSE 67; RESP 18; TEMP 36.4; O2SAT 100; BMI 27.4
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
--- NOTE | 2025-08-20 10:08 | W.PM.OPSUD ---
Surgery/Procedure H&P Update DATE OF PROCEDURE: August 20, 2025 DATE H&P PERFORMED: 07/29/25 H&P UPDATE INFORMATION: I have reviewed H&P completed within last 30 days, I have examined patient prior to procedure, No changes to prior documentation and Risks and benefits of the procedure reviewed PLANNED PROCEDURE: Operation Date: 08/20/25 10:00 Proposed Procedures p EGD EGD with Biopsy [id number] R12(Not Applicable) - Fernando Do MD
[2025-08-20 10:28] VITALS: PULSE 69; RESP 18; TEMP 36.2; O2SAT 96
[2025-08-20 10:55] VITALS: BP 151/75; PULSE 74; RESP 16; O2SAT 98
--- NOTE | 2025-08-20 11:00 | ANE.PACU2 ---
Inpatient post-anesthesia follow up: Airway intact: Yes Vital signs: Temperature 97.2 F Pulse Rate 74 Respiratory Rate 16 Blood Pressure 151/75 Pulse Oximetry 98 Oxygen Delivery Me thod Room Air Oxygen Flow Rate Fraction of Inspir ed Oxygen Hydration adequate: Yes Nausea and vomiting: No Pain level: 1 Mental status: Baseline
== END 2025-08-20 11:00 | disposition home or self-care (01) ==
PROVIDERS: PCP Nurse Practitioner; Visit Provider Student in an Organized Health Care Education/Training Program
PROC: 0DJ08ZZ Inspection of Upper Intestinal Tract, Via Natural or Artificial Opening Endoscopic (ICD-10-PCS; principal; 2025-08-20 10:00)
DX: K21.9 Gastro-esophageal reflux disease without esophagitis (principal); R12 Heartburn; K44.9 Diaphragmatic hernia without obstruction or gangrene; K29.70 Gastritis, unspecified, without bleeding; I10 Essential (primary) hypertension; M79.7 Fibromyalgia; E11.9 Type 2 diabetes mellitus without complications; G47.30 Sleep apnea, unspecified; Z79.82 Long term (current) use of aspirin; F43.10 Post-traumatic stress disorder, unspecified; F41.9 Anxiety disorder, unspecified; Z87.891 Personal history of nicotine dependence
CPT/HCPCS: 43239; 88305; J2704; J7030

== ENCOUNTER 2025-08-21 14:37 | Outpatient (CLI) | payer MEDICARE, OTHER, SELFPAY ==
[2025-08-21 15:56] LABS: Hematocrit 38.2 % (36-47); Hemoglobin 12.10 g/dL (11.27-16.99); Mean Corpuscular HGB Conc 31.7 g/dL (30-55); Mean Corpuscular Hemoglobin 29.2 pg (27-33); Mean Corpuscular Volume 92.3 fl (85-98); Nucleated Red Blood Cells % 0 %; Platelet Count 304 10^3/cmm (157-399); Red Blood Count 4.14 10^6/uL (3.85-5.65); White Blood Count 5.40 10^3/uL (3.29-11.43)
[2025-08-21 16:46] LABS: Hepatitis B Surface Antigen Non-Reactive (Nonreactive)
[2025-08-21 17:55] LABS: Alanine Aminotransferase 7 U/L (0-33); Albumin Level 4.6 g/dL (3.5-5.2); Alkaline Phosphatase 45 U/L (35-105); Aspartate Amino Transferase 17 U/L (0-32); Globulin 3.0 g/dL (1.3-4.6); Thyroid Stimulating Hormone 2.33 uIU/mL (0.27-4.20); Total Protein 7.6 g/dL (6.6-8.7); Vitamin B12 1008 pg/mL (232-1245)
== END 2025-08-21 14:38 | disposition home or self-care (01) ==
LOC: LAB 14:40
PROVIDERS: PCP Nurse Practitioner; Visit Provider Internal Medicine Rheumatology
DX: I10 Essential (primary) hypertension (principal); E78.2 Mixed hyperlipidemia; E11.9 Type 2 diabetes mellitus without complications; E55.9 Vitamin D deficiency, unspecified; Z79.899 Other long term (current) drug therapy
CPT/HCPCS: 36415; 80076; 82565; 82607; 84443; 85025; 85651; 86140; 86480; 86704; 86803; 87340; 87522

== ENCOUNTER → 2025-09-09 13:34 | Outpatient (BNVA) | payer MEDICARE, OTHER, SELFPAY | PROVIDERS: PCP Nurse Practitioner; Visit Provider Student in an Organized Health Care Education/Training Program | DX: Z09 Encounter for follow-up examination after completed treatment for conditions other than malignant neoplasm (principal) | CPT/HCPCS: 99213 ==

== ENCOUNTER 2025-09-12 07:50 | Outpatient (CLI) | payer MEDICARE, OTHER, SELFPAY ==
[2025-09-12 08:36] LABS: Alanine Aminotransferase < 5 U/L (0-33); Albumin Level 4.5 g/dL (3.5-5.2); Alkaline Phosphatase 40 U/L (35-105); Anion Gap 13.6 (5-19); Aspartate Amino Transferase 20 U/L (0-32); Blood Urea Nitrogen 13 mg/dL (8-23); Calcium 9.3 mg/dL (8.5-10.5); Carbon Dioxide 25 mmol/L (22-29); Chloride 106 mmol/L (98-107); Cholesterol 207 mg/dL (0-200); Globulin 2.6 g/dL (1.3-4.6); Glucose 91 mg/dL (65-115); HDL Cholesterol 109 mg/dL (60-100); Osmolality Calculated 292 mOsm/kg (285-295); Potassium 3.6 mmol/L (3.5-5.1); Sodium 141 mmol/L (136-145); Total Protein 7.1 g/dL (6.6-8.7); Triglycerides 60 mg/dL (0-150); VLDL Cholestrol Calculation 12 mg/dL (0-30)
[2025-09-12 08:51] LABS: Estmated Average Glucose 114; Hemoglobin A1C 5.6 % (4.0-6.0)
== END 2025-09-12 07:51 | disposition home or self-care (01) ==
LOC: LAB 07:53
PROVIDERS: PCP Nurse Practitioner; Visit Provider Nurse Practitioner
DX: I10 Essential (primary) hypertension (principal); E78.2 Mixed hyperlipidemia; E11.9 Type 2 diabetes mellitus without complications; E55.9 Vitamin D deficiency, unspecified
CPT/HCPCS: 36415; 80053; 80061; 83036

== ENCOUNTER → 2025-10-08 11:13 | Outpatient (BNVA) | payer MEDICARE, OTHER, SELFPAY | PROVIDERS: PCP Nurse Practitioner; Visit Provider Podiatrist Foot & Ankle Surgery | DX: E11.42 Type 2 diabetes mellitus with diabetic polyneuropathy (principal); L60.3 Nail dystrophy; E11.8 Type 2 diabetes mellitus with unspecified complications; G24.01 Drug induced subacute dyskinesia; G62.9 Polyneuropathy, unspecified | CPT/HCPCS: 11721; 99213 ==